=== PATIENT | female | born 1955 | race Caucasian/White ===

== ENCOUNTER 2020-04-06 08:50 | Outpatient (REF) | payer MEDICARE, SELFPAY ==
[2020-04-06 11:35] LABS: Estimated Average Glucose 100 mg/dL; Hemoglobin A1c % 5.1 %
[2020-04-06 11:40] LABS: Glucose Fasting 109 mg/dL (60-99)
== END 2020-04-06 08:51 | disposition home or self-care (01) ==
LOC: HO.WFDLDS 08:50
PROVIDERS: PCP Internal Medicine; Visit Provider Internal Medicine
DX: R73.09 Other abnormal glucose (principal)
CPT/HCPCS: 82947; 83036

== ENCOUNTER 2023-05-13 12:21 | Emergency (ER) | payer MEDICARE, SELFPAY ==
[2023-05-13 12:31] VITALS: BP 140/57; BP 162/89; PULSE 64; PULSE 71; RESP 18; TEMP 36.8; O2SAT 97; O2SAT 99; BMI 42.7
--- NOTE | 2023-05-13 12:39 | PC.NURSE ---
Patient from home reports has had both knees replaced about 8 years ago and did not rehab properly so now she is weak. Denies falls but states has trouble getting up. Denies pain or discomfort, denies sob or chest pain
--- NOTE | 2023-05-13 13:08 | ECG_ITS ---
Test Reason : WEAKNESS Blood Pressure : / mmHG Vent. Rate : 061 BPM Atrial Rate : 061 BPM P-R Int : 160 ms QRS Dur : 078 ms QT Int : 442 ms P-R-T Axes : 035 011 017 degrees QTc Int : 444 ms Normal sinus rhythm Low voltage QRS Nonspecific ST and T wave abnormality Abnormal ECG When compared with ECG of 10-APR-2010 11:20, Nonspecific T wave abnormality now evident in Anterior leads Referred By: Arlene Damian Electronically Signed By:JENNIFER CHANG
--- NOTE | 2023-05-13 13:09 | ED.WEAKNESS ---
HPI - Weakness General Chief complaint: Weakness Stated complaint: INCR WEAKNESS W/DIFF AMB PER EMS Time Seen by Provider: 05/13/23 13:02 Source: patient Mode of arrival: EMS Limitations: no limitations History of Present Illness HPI Narrative: To the emergency room complaining of weakness. Patient states that for the last 2 months, patient has had multiple falls due to bilateral leg weakness. Patient states that she has no significant pain. However, when she goes up the stairs, she frequently falls. Patient states that she has never hit her head or lost consciousness. Patient does have atrial fibrillation but is not on any blood thinners. Patient states that she has bilateral upper thigh soreness from trying to get out of the couch so many times. Patient states that today her got sick, she has not able to care for him because of her weakness. Patient's was brought to the emergency room by hospital and decided to come along to get checked out. At this time, patient has no complaints, other than the soreness of the thighs. Related Data Allergies Allergy/AdvReac Type Severity Reaction Status Date / Time Penicillins Allergy Severe ANAPHYLAXIS Unverified 12/24/19 15:14 Review of Systems Review of Systems: Constitutional : No Weight loss, No Fever, No Chills, No Night Sweats, No Fatigue, No Malaise ENT/Mouth : No Hearing loss, No Ear Pain, No Nasal Congestion, No Sinus Pain, No Hoarseness, No sore throat, No Rhinorrhea, No Swallowing Difficulty Eyes: No Eye Pain, No Swelling, No Redness, No Foreign Body, No Discharge, No Vision Changes Cardiovascular : No Chest Pain, No SOB, No Dyspnea on Exertion, No Orthopnea, No Edema, No Palpitations Respiratory : No Cough, No Sputum, No Wheezing, No Smoke Exposure, No Dyspnea Gastrointestinal : No Nausea, No Vomiting, No Diarrhea, No Constipation, No abdominal Pain, No Hematochezia, No Melena Genitourinary : no irregular bleeding, No Dysuria, No Urinary Frequency, No Hematuria, No Urinary Incontinence, No Urgency, No Flank Pain, No Urinary Flow Changes, No Hesitancy Musculoskeletal : No joint pain, No Myalgias, No Joint Swelling complaining of bilateral leg weakness for months, no pain Skin : No Skin Lesions, No rash Neuro : No Weakness, No Numbness, No Paresthesias, No Loss of Consciousness, No Dizziness, No Headache Psych : No Anxiety/Panic, No Depression, No SI/HI/AH/VH, No Social Issues, Heme/Lymph: No Bruising, No Bleeding,No Lymphadenopathy Endocrine : No Polyuria, No Polydipsia, No Temperature Intolerance FORMERLY [facility], [facility] Past Medical History Medical History (Updated 05/13/23 @ 13:13 by Arlene Damian MD) Atrial fibrillation with RVR Hypertension Social History Social History Smoked in Last 30 Days: No Use of substances other than those prescribed or required for medical reasons: No Advance Directives: No Advance Directives Information Provided: No Physical Exam Vital Signs: Vital Signs: Last Vital Signs Temp 98.3 F 05/13/23 12:31 Pulse 64 05/13/23 12:31 Resp 18 05/13/23 12:31 BP 140/57 H 05/13/23 12:31 Pulse Ox 97 05/13/23 12:31 O2 Del Method Room Air 05/13/23 12:31 BMI result Body Mass Index 42.7 Course Course Course Narrative: -all of patient's labs pending -case management consult pending -physical therapy consult pending -patient is on physician observation, waiting to be seen by case management and physical therapy Medical Decision Making Medical Decision Making MDM Narrative: -my interpretation of labs, hematology and chemistry at baseline, normal magnesium, normal troponin, COVID negative -patient has no other complaints other than the weakness. -urinalysis pending, patient has not given us a urine sample yet. -physical therapy and Case Management consult pending Differential Diagnosis Differential Diagnoses: The differential diagnosis associated with the presentation includes (Generalized weakness, UTI, depression) Admission/Observation Consideration of admission/observation: Escalation of care including admission/observation considered (Patient under physician observation, waiting to be seen by Physical therapy) Lab Data 05/13/23 13:35 05/13/23 13:35 Labs: Lab Results 05/13/23 Range/Units 13:35 WBC 5.3 (4.8-10.8) X10*3/uL RBC 4.10 L (4.20-5.50) X10*6/uL Hgb 11.8 L (12.0-16.0) g/dl Hct 35.2 L (37.0-47.0) % MCV 85.9 (80.0-98.0) fL MCH 28.8 (27.0-33.0) pg MCHC 33.5 (31.0-35.0) g/dl RDW 16.8 H (11.0-16.0) % Plt Count 254 (160-400) X10*3/uL MPV 8.8 L (9.4-12.3) fL Immature Gran % (Auto) 0.6 H (0.0-0.4) % Neut % (Auto) 72.5 (45-73) % Lymph % (Auto) 11.2 L (20-40) % Darke % (Auto) 9.5 (2-11) % Eos % (Auto) 5.1 H (0-4) % Baso % (Auto) 1.1 (0-2) % Lymph # (Auto) 0.6 L (1.2-4.9) X10*3/uL [place] # (Auto) 0.5 (0.1-1.2) X10*3/uL Eos # (Auto) 0.3 (0.0-0.4) X10*3/uL Baso # (Auto) 0.1 (0.0-0.2) X10*3/uL Abs Immat Gran (auto) 0.03 (0.00-0.03) X10*3/uL Absolute Neuts (auto) 3.8 (2.0-8.3) x10*3/uL Absolute Nucleated RBC 0.000 (0.0-0.012) X10*3/uL Nucleated RBC % (auto) 0.0 (0.0-0.2) /100WBC PT 12.3 (11.1-13.3) SEC INR 1.0 (0.9-1.1) Sodium 136 (135-145) mmol/L Potassium 4.2 (3.3-5.1) mmol/L Chloride 100 (96-108) mmol/L Carbon Dioxide 27 (22-29) mmol/L Anion Gap 13 (12-20) BUN 9 (9-16) mg/dL Creatinine 0.82 (0.5-1.4) mg/dL Estim Creat Clear Calc 88.3 Estimated GFR > 60 Random Glucose 119 H (60-115) mg/dL Calcium 9.1 (8.4-10.2) mg/dL Magnesium 2.1 (1.6-2.6) mg/dL Total Bilirubin 0.6 (0.0-1.0) mg/dL Direct Bilirubin 0.2 (0.0-0.5) mg/dL AST 26 (5-31) U/L ALT 14 (0-31) U/L Alkaline Phosphatase 89 (39-117) U/L Troponin I High Sens 3.1 (<3.5-17.0) ng/L Total Protein 6.1 L (6.5-8.0) g/dL Albumin 3.5 (3.5-5.0) g/dL COVID-19 (BABITA) Negative (Negative) COVID-19 Clin Com See Note Discharge Plan Discharge Clinical Impression: Bilateral leg weakness Patient Disposition: Still a Patient
[2023-05-13 13:45] LABS: MANUAL DIFF FLAG NO
[2023-05-13 13:46] LABS: Basophils Absolute Auto 0.1 X10*3/uL (0.0-0.2); Basophils Percent Auto 1.1 % (0-2); Eosinophils Absolute Auto 0.3 X10*3/uL (0.0-0.4); Eosinophils Percent Auto 5.1 % (0-4); Hematocrit 35.2 % (37.0-47.0); Hemoglobin 11.8 g/dl (12.0-16.0); Imm Gran Abs Auto 0.03 X10*3/uL (0.00-0.03); Imm Gran Pct Auto 0.6 % (0.0-0.4); Lymphocytes Absolute Auto 0.6 X10*3/uL (1.2-4.9); Lymphocytes Percent Auto 11.2 % (20-40); Mean Corpuscular HGB Conc 33.5 g/dl (31.0-35.0); Mean Corpuscular Hemoglobin 28.8 pg (27.0-33.0); Mean Corpuscular Volume 85.9 fL (80.0-98.0); Mean Platelet Volume 8.8 fL (9.4-12.3); Monocytes Absolute Auto 0.5 X10*3/uL (0.1-1.2); Monocytes Percent Auto 9.5 % (2-11); Neutrophils Absolute Auto 3.8 x10*3/uL (2.0-8.3); Neutrophils Percent Auto 72.5 % (45-73); Platelet Count 254 X10*3/uL (160-400); Red Cell Distribution Width 16.8 % (11.0-16.0); White Blood Count 5.3 X10*3/uL (4.8-10.8)
[2023-05-13 13:54] LABS: Prothrombin Time 12.3 SEC (11.1-13.3)
[2023-05-13 13:57] LABS: COVID-19 Test Negative (Negative); IDNOW Serial# 152EDE1D
[2023-05-13 14:01] LABS: Alanine Aminotransferase 14 U/L (0-31); Albumin Level 3.5 g/dL (3.5-5.0); Alkaline Phosphatase 89 U/L (39-117); Anion Gap 13 (12-20); Aspartate Amino Transferase 26 U/L (5-31); Bilirubin Direct 0.2 mg/dL (0.0-0.5); Bilirubin Total 0.6 mg/dL (0.0-1.0); Blood Urea Nitrogen 9 mg/dL (9-16); Calcium 9.1 mg/dL (8.4-10.2); Carbon Dioxide 27 mmol/L (22-29); Chloride 100 mmol/L (96-108); Creatinine Clr Calc Pharmacy 88.3; Estimated Glomerular Filt Rate > 60; Glucose Random 119 mg/dL (60-115); Magnesium 2.1 mg/dL (1.6-2.6); Potassium 4.2 mmol/L (3.3-5.1); Sodium 136 mmol/L (135-145); Total Protein 6.1 g/dL (6.5-8.0)
[2023-05-13 14:10] LABS: Troponin-I High Sensitivity 3.1 ng/L (<3.5-17.0)
[2023-05-13 18:06] VITALS: RESP 20; O2SAT 97
[2023-05-13 19:12] VITALS: BP 124/54; PULSE 73; RESP 17; TEMP 36.8; O2SAT 96
--- NOTE | 2023-05-13 19:19 | MHC.CM.ED ---
CM met with patient and cousin. Pt is A&Ox3. Pt is a retired pediatric nurse. Pt is quite concerned about her , as he is a patient in our ED also. Pt lives with her . Has grown children. Occasionally uses a walker, more so the last week. Is independent at home. Has no services. PT is pending. Reviewed plan of care options including Acute rehab, STR, home PT, and the 3 midnight rule. Pt does not have funds to private pay for STR. Does not meet criteria for admission. Pt would be a good candidate for Acute rehab. Referrals placed with 3 local acute rehabs. Pt lives in [place]. [facility]. Will place referral in the am, as office is closed. HCP reviewed, completed and signed per protocol. HCP #1 Luther Giang, ([phone]) and #2 Hollis Rahat, son ([phone]) CM will follow for discharge planning.
--- NOTE | 2023-05-13 19:22 | MHC.EDTECH ---
This Tech assumed care of this PT. Pt placed on alarm security or surveillance monitor and red fall precaution wristband and socks put on pt
--- NOTE | 2023-05-13 20:37 | PHA.MEDREC ---
Pharmacy Consult ? Medication Reconciliation Pharmacy has completed the medication reconciliation. Patient reported medications. Elaine Galarza, RheaD
[2023-05-14 03:48] VITALS: BP 164/58; PULSE 92; RESP 20; TEMP 36.7; O2SAT 98
[2023-05-14 08:26] VITALS: BP 148/72; PULSE 87; RESP 16; TEMP 36.3; O2SAT 97
[2023-05-14 08:37] VITALS: BP 148/72; PULSE 87; O2SAT 97
[2023-05-14] MEDS: hydroCHLOROthiazide 12.5 MG TABLET PO (09:52)
[2023-05-14] MEDS: buPROPion HCl XL 300 MG TAB.ER.24H PO (09:52)
[2023-05-14] MEDS: lisinopriL 10 MG TABLET PO (09:52)
[2023-05-14] MEDS: Metoprolol Tartrate 50 MG TABLET PO ×2 (10:16→21:41)
[2023-05-14] MEDS: PARoxetine HCL 40 MG TABLET PO (10:16)
[2023-05-14 14:00] VITALS: BP 158/56; PULSE 65; RESP 14; TEMP 36.2; O2SAT 96
[2023-05-14 15:23] LABS: Appearance Urine Clear; Color Urine Yellow; Glucose Urine UA Negative (Negative); Leukocyte Esterase Urine Trace (Negative); Nitrite Urine Negative (Negative); PH 8.5 (5.0-9.0); UMIC TRIGGER UACC YES; Urine Blood Negative (Negative); Urine Ketones Trace mg/dL (Negative); Urine Protein Negative (Neg-Trace)
[2023-05-14 15:25] LABS: Bacteria Urine None Seen (None Seen); Hyaline Casts Urine 0-2 /LPF (0-2); RBC Urine 0-2 /HPF (0-2); Squamous Epithelial Cell Urine 0-2 /HPF (0-2); WBC Urine 0-5 /HPF (0-5)
--- NOTE | 2023-05-14 15:35 | MHC.EDTECH ---
pt used the br at 3:10pm and went back to bed
[2023-05-14 15:37] LABS: Amphetamine Screen Urine Not Detected (Not Detect); Barbiturates, Urine Not Detected (Not Detect); Benzodiazepines Screen Urine Not Detected (Not Detect); Cannabinoid Screen Urine Not Detected (Not Detect); Cocaine Screen Urine Not Detected (Not Detect); Fentanyl, urine Not Detected (Not Detect); Opiate Screen Urine Not Detected (Not Detect); Phencyclidine Screen Urine Not Detected (Not Detect)
--- NOTE | 2023-05-14 15:59 | MHC.CM.ED ---
Patient remains in ER overflow. Physical therapy eval completed. Short term rehab is recomemnded. No acute rehab beds were offered. Met with patient in regards to d/c planning. Patient will not be able to privately pay for short term rehab. Patient is concerned about going home alone because her is admitted to [facility]. Patient has children that can assist her and check on her. Patient agreeable to [facility] referral. Referral made via [facility]. Patient's son will not be able to transport patient home until tomorrow 05/15. Continue to monitor for d/c needs.
--- NOTE | 2023-05-14 17:17 | PC.NURSE ---
Pt seen by [employer]. Plan is to go home tomorrow, pt aware of plan. Pt ambulates around the unit using a walker.
--- NOTE | 2023-05-14 19:04 | MHC.EDTECH ---
pt walked and used the bathroom.
[2023-05-14 21:13] VITALS: BP 116/55; PULSE 67; RESP 17; TEMP 36.2; O2SAT 98
--- NOTE | 2023-05-15 01:59 | PC.NURSE ---
Took report from off-going RN at 2300 hours. Pt is a 67 y/o female who is here for general weakness in lower extremities and frequent falls. Came in from home. 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 Pt is A & O X 4, pleasant and cooperative with staff. No acute distress noted and skin is W/P/D. Pt verbalizes needs appropriately. Plan is to discharge home with family, son's are traveling from [place] to help at home while remains inpatient. Will continue to monitor.
--- NOTE | 2023-05-15 03:20 | PC.NURSE ---
Pt is sleeping and appears comfortable. No acute distress noted. Pt is arousable with verbal stimuli. Ambulates independently as desired, walks with a steady gait. Verbalizes needs appropriately. Changes position in bed as desired. Pt is pending discharge home in the morning. will continue to monitor.
--- NOTE | 2023-05-15 05:10 | PC.NURSE ---
Pt is sleeping in left lateral position, appears comfortable. No acute distress observed. RR is regular rate and pattern. Changes positions as desired. Will continue to monitor.
[2023-05-15 06:00] VITALS: BP 124/72; PULSE 80; RESP 18; TEMP 36.3; O2SAT 96
[2023-05-15] MEDS: PARoxetine HCL 40 MG TABLET PO (07:59)
[2023-05-15] MEDS: buPROPion HCl XL 300 MG TAB.ER.24H PO (07:59)
[2023-05-15] MEDS: Metoprolol Tartrate 50 MG TABLET PO (07:59)
[2023-05-15] MEDS: lisinopriL 10 MG TABLET PO (07:59)
[2023-05-15] MEDS: hydroCHLOROthiazide 12.5 MG TABLET PO (07:59)
== END 2023-05-15 11:39 | disposition home or self-care (01) ==
PROVIDERS: Emergency Provider Emergency Medicine; PCP Internal Medicine
DX: R53.1 Weakness (principal); R26.2 Difficulty in walking, not elsewhere classified; Z79.899 Other long term (current) drug therapy; Z11.52 Encounter for screening for COVID-19
CPT/HCPCS: 80048; 80076; 80307; 81001; 83735; 84484; 85025; 85610; 87635; 93005; 97162; 99285

== ENCOUNTER → 2023-05-13 13:08 | Outpatient (BNV) | payer MEDICARE, SELFPAY | PROVIDERS: Emergency Provider Emergency Medicine; PCP Internal Medicine; Visit Provider Internal Medicine | DX: R94.31 Abnormal electrocardiogram [ECG] [EKG] (principal) | CPT/HCPCS: 93010 ==

== ENCOUNTER 2024-05-05 16:35 | Emergency (ER) | payer MEDICARE, SELFPAY ==
--- NOTE | ~2024-05-05 | XR_ITS ---
CLINICAL HISTORY: s p fall 3 view, pelvis and right hip Comparison: None Findings: The bones are intact. Severe right and mild left hip joint space narrowing and moderate periarticular osteophyte formation. The soft tissues are unremarkable. IMPRESSION: Sjexl-nmbqcoz-yxko-left hip osteoarthritis. This document has been electronically signed by: Germain Oro MD on 05/05/2024 17:57:34
[2024-05-05 16:51] VITALS: BP 140/80; BP 144/58; PULSE 62; PULSE 64; RESP 20; TEMP 37.5; O2SAT 98; BMI 39.2
--- NOTE | 2024-05-05 16:51 | ED.GENADULT ---
HPI - General Adult General Chief complaint: Fall Stated complaint: weakness, falling more frequently Time Seen by Provider: 05/05/24 16:49 Source: patient Mode of arrival: EMS Limitations: no limitations History of Present Illness ED Provider: HPI narrative: Patient with history of atrial fibrillation on Eliquis, hypotension, obesity with chronic lower extremity weakness walks with walker been feeling increasingly weak for last 2 months with frequent falls she fell 2 times this week today earlier she was walking with walker and feel that her feeds stuck to the ground and she fell on the couch without hitting her head this happened frequently that while walking she not able to lift her feet because of weakness patient denied any headache no nausea no vomiting no loss of consciousness no chest pain palpitation patient also does have bilateral hip pain with chronic hip arthritis Related Data Home Medications ?Medication ?Instructions ?Recorded ?Confirmed bupropion HCl 150 mg tablet,12 hr 150 mg PO BID 05/13/23 05/05/24 sustained-release lisinopril 10 1 tab PO DAILY 05/13/23 05/05/24 mg-hydrochlorothiazide 12.5 mg tablet metoprolol tartrate 50 mg tablet 50 mg PO BID 05/13/23 05/05/24 paroxetine HCl 40 mg tablet 40 mg PO QAM 05/13/23 05/05/24 apixaban 5 mg tablet (Eliquis) 5 mg PO BID 05/05/24 05/05/24 Allergies Allergy/AdvReac Type Severity Reaction Status Date / Time Penicillins Allergy Severe ANAPHYLAXIS Verified 05/05/24 16:54 Review of Systems Review of Systems: Yes all other systems are reviewed and are negative PMFSH Past Medical History Medical History Atrial fibrillation with RVR Hypertension Social History Social History Smoked in Last 30 Days: No Use of substances other than those prescribed or required for medical reasons: No Advance Directives: Yes Advance Directives on File: Yes Advance Directives Date on File: 05/13/23 Physical Exam ED Vital Signs: Vital Signs - 24 hr 05/05/24 16:51 05/05/24 18:28 05/05/24 20:00 Temperature 99.5 F 98.6 F Pulse Rate 62 64 69 Respiratory Rate 20 18 18 Blood Pressure 144/58 H 133/49 L 125/59 L Pulse Oximetry 98 98 Oxygen Delivery Method Room Air Room Air 05/05/24 22:00 Temperature 97.1 F Pulse Rate 61 Respiratory Rate 16 Blood Pressure 123/58 L Pulse Oximetry 96 Oxygen Delivery Method Room Air BMI result Body Mass Index 39.2 Appearance: Alert. Oriented X3. No acute distress. Eyes: PERRLA, No Nystagmus ENT: Pharynx normal. Oral Mucosa moist Neck: Normal inspection. Neck supple. No midline tenderness CVS: Normal heart rate and rhythm. Pulses normal. Respiratory: No respiratory distress. Equal air entry bilateral, no wheezing/rales/rhonchi Abdomen: Soft and nontender. Bowel sounds are present, no mass palpable, no CVA tenderness Skin: Skin warm and dry. Normal skin color. Normal skin turgor. Extremities: No lower extremity edema. No calf tenderness Neuro: Oriented X 3. No motor deficit. No sensory deficit.No cerebellar signs , cranial nerves II-XII intact Medications Administered Generic Name Dose Route Start Last Admin Trade Name Freq PRN Reason Stop Dose Admin Apixaban 5 mg 05/05/24 21:00 05/05/24 20:03 Apixaban 5 Mg Tablet PO 5 mg BID NYA Administration Metoprolol Tartrate 50 mg 05/05/24 21:00 05/05/24 20:02 Metoprolol Tartrate 50 Mg Tablet PO 50 mg BID NYA Administration Protocol Medical Decision Making Medical Decision Making [facility] Narrative: Patient obese with difficulty in walking for last several months asking for rehab inpatient placement as she is unable to manage no acute pathology at this time labs are stable will get case management involved PT to evaluate Differential Diagnosis Differential Diagnoses: The differential diagnosis associated with the presentation includes Deconditioning/obesity/weakness Lab Data [facility] Lab Attestation statement: I reviewed the patient's lab results. 05/05/24 18:09 05/05/24 18:09 Labs: Lab Results 05/05/24 05/05/24 Range/Units 18:09 19:56 WBC 7.3 (4.8-10.8) X10*3/uL RBC 4.14 L (4.20-5.50) X10*6/uL Hgb 12.3 (12.0-16.0) g/dl Hct 36.6 L (37.0-47.0) % MCV 88.4 (80.0-98.0) fL MCH 29.7 (27.0-33.0) pg MCHC 33.6 (31.0-35.0) g/dl RDW 15.1 (11.0-16.0) % Plt Count 257 (160-400) X10*3/uL MPV 9.1 L (9.4-12.3) fL Immature Gran % (Auto) 1.4 H (0.0-0.4) % Neut % (Auto) 75.4 H (45-73) % Lymph % (Auto) 9.4 L (20-40) % [place] % (Auto) 10.1 (2-11) % Eos % (Auto) 2.9 (0-4) % Baso % (Auto) 0.8 (0-2) % Lymph # (Auto) 0.7 L (1.2-4.9) X10*3/uL [place] # (Auto) 0.7 (0.1-1.2) X10*3/uL Eos # (Auto) 0.2 (0.0-0.4) X10*3/uL Baso # (Auto) 0.1 (0.0-0.2) X10*3/uL Abs Immat Gran (auto) 0.10 H (0.00-0.03) X10*3/uL Absolute Neuts (auto) 5.5 (2.0-8.3) x10*3/uL Absolute Nucleated RBC 0.000 (0.0-0.012) X10*3/uL Nucleated RBC % (auto) 0.0 (0.0-0.2) /100WBC Sodium 133 L (135-145) mmol/L Potassium 3.8 (3.3-5.1) mmol/L Chloride 98 (96-108) mmol/L Carbon Dioxide 27 (22-29) mmol/L Anion Gap 12 (12-20) BUN 8 L (9-16) mg/dL Creatinine 0.73 (0.5-1.4) mg/dL Estim Creat Clear Calc 93.2 Estimated GFR > 60 Random Glucose 102 (60-115) mg/dL Calcium 8.8 (8.4-10.2) mg/dL Magnesium 1.9 (1.6-2.6) mg/dL Total Bilirubin 0.6 (0.0-1.0) mg/dL AST 25 (5-31) U/L ALT 10 (0-31) U/L Alkaline Phosphatase 84 (39-117) U/L Total Protein 6.1 L (6.5-8.0) g/dL Albumin 3.3 L (3.5-5.0) g/dL Urine Color Yellow Urine Appearance Clear Urine pH 7.5 (5.0-9.0) Ur Specific [place] 1.015 (1.005-1.025) Urine Protein Negative (Neg-Trace) mg/dL Urine Glucose (UA) Negative (Negative) mg/dL Urine Ketones Negative (Negative) mg/dL Urine Blood Negative (Negative) Urine Nitrite Negative (Negative) Ur Leukocyte Esterase Negative (Negative) COVID-19 (BABITA) Negative (Negative) COVID-19 Clin Com See Note Independent Interpretation I performed an independent interpretation of an: EKG and Plain X-Ray Interpretation: Normal sinus rhythm with PACs normal axis normal intervals no acute STT wave changes no acute ischemia Radiology Impression Discussion of test interpretation with radiology: I have reviewed the radiologist's reading. Radiologist Impression: Bilateral hip arthritis Discharge Plan Discharge Clinical Impression: Weakness, Frequent falls Patient Disposition: Still a Patient Prescriptions: No Action Eliquis 5 mg tablet 5 mg PO BID bupropion HCl 150 mg tablet sustained-release 12 hr 150 mg PO BID metoprolol tartrate 50 mg tablet 50 mg PO BID lisinopril-hydrochlorothiazide 10-12.5 mg tablet 1 tab PO DAILY paroxetine HCl 40 mg tablet 40 mg PO QA Print Language: Arabic
--- NOTE | 2024-05-05 17:21 | ECG_ITS ---
Test Reason : weakness Blood Pressure : */* mmHG Vent. Rate : 63 BPM Atrial Rate : 63 BPM P-R Int : 148 ms QRS Dur : 90 ms QT Int : 450 ms P-R-T Axes : 12 -3 12 degrees QTcB Int : 460 ms Sinus rhythm with marked sinus arrhythmia Nonspecific T wave abnormality Abnormal ECG When compared with ECG of 13-May-2023 13:50, No significant change was found Referred By: Jaylen Young Electronically Signed By: JENNIFER CHANG
--- OUTSIDE RECORDS SUMMARY | 2024-05-05 17:52 | XMS_ITS ---
Author Organization Tristin Song MD Address [address] [place], [place] [phone] Care Team Providers Care Cartographic Drafter Name Role Phone Tristin Song Primary Care Provider Allergies Allergen (clinical drug ingredient) Drug/Non Drug Allergy documented on EMR Reaction Allergy Type Onset Date Status penicillin G Penicillin G Potassium hives ,throat swelling Drug Allergy Active REASON FOR VISIT 3 month could not make it to the office , will do Telelhealth ? needs Physical and Labs, stopped Eliquis 1 week ago for 2 days but then went back on but only once a day due to severe Epistaxis, [id number] Medications Medication SIG (Take, Route, Frequency, Duration) Notes Start Date End Date Status PARoxetine HCl 40 MG TAKE 1 TABLET BY MO RUST EVERY MORNING for 30 Active buPROPion HCl ER (SR) 150 MG TAKE 1 TABLET BY MOUTH TWICE DAILY for 90 Active Eliquis 5 MG as directed Orally o nce a day 12/02/2023 Active Metoprolol Tartrate 50 MG TAKE 1 TABLET BY MOUTH TWICE DAILY for 90 Active Clindamycin HCl 300 MG TAKE 2 CAPSULES B Y MOUTH 1/2 HOUR PRIOR TO DENTAL APPT. Oral i/2 hour before dental for 1 days 04/18/2015 Active Concerta 36 MG 2 tablet in the morn ing Orally Once a day for 30 days 10/02/2022 Not-Taking Iron 325 (65 Fe) MG 1 tablet Orally Once a day for 30 day(s) 01/23/2018 Not-Taking Lisinopril-hydroCHLOROthi azide 10-12.5 MG TAKE 1 TABLET BY MOUTH EVERY DAY Orally Once a day for 90 days Active Problems Problem Type SNOMED Code ICD Code Onset Dates Problem Status W/U Status Risk Notes Problem [id number] Gait disorder (R26.9) Active confirmed Vital Signs Height 67 in 03/17/2024 Weight 250 lbs 03/17/2024 BMI 39.15 kg/m2 03/17/2024 weight at home is 250 BP donta l be taken before her visit Encounters Encounter Location Date Provider Diagnosis Tristin Song MD [address] [place] [address] [address] [place], [place] [phone] 03/17/2024 Tristin Song Paroxysmal atrial fibrillation I48.0 ; Bleeding nose R04.0 ; Chronic alcohol abuse F10.10 and Gait disorder R26.9 Assessments Encounter Date Diagnosis (ICD Code) Assessment Notes Treatment Notes Treatment Clinical Notes Section Notes 03/17/2024 Paroxysmal atrial fibrillation (ICD-10 - I48.0) will leave on present one eliquis per day for another week and then start on 2/day again thinking that the nose bleeds were related to the covid 03/17/2024 Bleeding nose (ICD-10 - R04.0) will monitor 03/17/2024 Chronic alcohol abuse (ICD-10 - F10.10) is going to try to cut back on drinking. 03/17/2024 Gait disorder (ICD-10 - R26.9) referral to physical therapy at [facility]/ orders for PT mailed to patient Plan Of Treatment Treatment Notes Assessment Notes Paroxysmal atrial fibrillation will leav e on present one eliquis per day for another week and then start on 2/day again thinking that the nose bleeds were related to the covid Bleeding nose will monitor Chronic alcohol abuse is going to try to cut back on drinking. Gait disorder referral to physical therapy at [facility]/ orders for PT mailed to patient Next Appt Details Follow Up: 2 Months, Reason: Provider Name:Tristin Cruz ier, 05/18/2024 03:00:00 PM, [address] [facility], [address], [place], [place], [phone], Progress Notes * Candelaria GIANG ADOB:1955 (68 yo F)Acc No.[id number]:03/17/2024 Patient:?Candelaria Giang A Provider:?Tristin Song MD :1955???Age:68 Y???Sex:Female D ate:03/17/2024 Address:[address] [place] [address] , [id number] Subjective: * Chief Complaints: * ???3 month could not make it to the office , will do Telelhealth ? needs Physical and Labsstopped Eliquis 1 week ago for 2 days but then went back on but only once a day due to severe EpistaxisVideo [phone] * HPI: ???Symptom(s):?Telehealth?Location of provider rendering services:?[address], [address],?Location of patient:?at address listed in demographics for today's visit,?Patient identification confirmed using:?Name, , SSN, Insurance information,?Telehealth method:?Video conference where patient is visible to the provider of care,?Consent:?Patient verbally consented to treatment, Patient verbally consented to billing insurance company, Patient informed of any privacy concerns related to method of visit,?Total time spend talking with patient (minutes)?25.? patientis a 68 yo female video telehealth visit, for 3 month follow up, had severe nose bleed with a sneeze and hard time stopping it/ stopped it for a couple days. was at the tale end of covid and had a lot of chest congestion and head congestion. * ROS:?General/Constitutional:?Denies?Chills.?Denies?Fatigue.?Denies?Fever.?Denies?Headache.?ENT:?Patient denies?decreased sense of smell , any loss of taste , sore throat.?Denies?Sore throat.?Respiratory:?Denies?Cough.?Denies?Shortness of breath at rest.?Denies?Shortness of breath with exertion.?Cardiovascular:?Denies?Chest pain at rest.?Denies?Chest pain with exertion.?Denies?Dizziness.?Denies?Fluid accumulation in the legs.?Denies?Palpitations.?Denies?Shortness of breath.?Gastrointestinal:?Denies?Diarrhea.?Denies?Nausea.?Musculoskeletal:?Patient denies?muscle aches.?Peripheral Vascular:?Patient denies?red and blue toes.? * Medical History:? * Surgical History:? * Hospitalization/Major Diagno stic Procedure:? * Medications:?TakingLisinopri l-hydroCHLOROthiazide 10-12.5 MG Tablet TAKE 1 TABLET BY MOUTH EVERY DAY Orally Once a dayPARoxetine HCl 40 MG Tablet TAKE 1 TABLET BY MOUTH EVERY MORNING buPROPion HCl ER (SR) 150 MG Tablet Extended Release 12 Hour TAKE 1 TABLET BY MOUTH TWICE DAILY Eliquis 5 MG Tablet as directed Orally once a dayMetoprolol Tartrate 50 MG Tablet TAKE 1 TABLET BY MOUTH TWICE DAILY Clindamycin HCl 300 MG Capsule TAKE 2 CAPSULES BY MOUTH 1/2 HOUR PRIOR TO DENTAL APPT. Oral i/2 hour before dentalTaking Lisinopril-hydroCHLOROthiazide 10-12.5 MG Tablet TAKE 1 TABLET BY MOUTH EVERY DAY Orally Once a dayTaking PARoxetine HCl 40 MG Tablet TAKE 1 TABLET BY MOUTH EVERY MORNING Taking buPROPion HCl ER (SR) 150 MG Tablet Extended Release 12 Hour TAKE 1 TABLET BY MOUTH TWICE DAILY Taking Eliquis 5 MG Tablet as directed Orally once a dayTaking Metoprolol Tartrate 50 MG Tablet TAKE 1 TABLET BY MOUTH TWICE DAILY Taking Clindamycin HCl 300 MG Capsule TAKE 2 CAPSULES BY MOUTH 1/2 HOUR PRIOR TO DENTAL APPT. Oral i/2 hour before dentalNot-Taking/PRNConcerta 36 MG Tablet Extended Release 2 tablet in the morning Orally Once a dayIron 325 (65 Fe) MG Tablet 1 tablet Orally Once a dayMedication List reviewed and reconciled with the patientNot-Taking/PRN Concerta 36 MG Tablet Extended Release 2 tablet in the morning Orally Once a dayNot-Taking/PRN Iron 325 (65 Fe) MG Tablet 1 tablet Orally Once a dayMedication List reviewed and reconciled with the patient * Allergies:?Penicillin G Pota ssium: hives ,throat swellingyes[Allergies Verified] Objective: * Vitals:?Ht: 67, Wt:250, BMI: 39.15 weight at home is 250 BP will be taken before her visit. * Examination: ???General Examination: ?GENERAL APPEARANCE:?pleasant, well nourished, well developed, in no acute distress.? Assessment: * Assessment: 1.?Paroxysmal atrial fibrill ation - I48.0 (Primary)?2.?Bleeding nose - R04.0?3.?Chronic alcohol abuse - F10.10?4.?Gait disorder - R26.9? Plan: * Treatment: 2.?Bleeding nose? Notes: will monitor?? 3.?Chronic alcohol abuse? Notes: is going to try to cut back on drinking. ?? 4.?Gait disorder? Notes: referral to physical therapy at [facility]/ orders for PT mailed to patient?? * Procedure Codes:? * Follow Up:?2 Months * * Sign off status: Completed true * Provider:?Tristin Song MD Date:?1 05/18/2023 Generated for Mendez diamond/Morris/eTjeffrey on:?05/05/2024 05:52 PM EST History and Physical Notes * HPI (History of Present Illness) Category Sub-Category Detail Notes Category Not es Symptom(s) Telehealth Location of [facility] ider rendering services:: [address], [address] patientis a 68 yo female video telehealth visit, for 3 month follow up, had severe nose bleed with a sneeze and hard time stopping it/ stopped it for a couple days. was at the tale end of covid and had a lot of chest congestion and head congestion Location of patient:: at address listed in demographics for today's visit Patient identification confirmed using:: Name, , SSN, Insurance information Telehealth method:: Video co nference where patient is visible to the provider of care Consent:: Patient verbally c onsented to treatment, Patient verbally consented to billing insurance company, Patient informed of any privacy concerns related to method of visit Total time spend talking with patient (m inutes): 25 Examination Category Sub-Category Detail Notes Category Not es General Examination GENERAL APPEARANCE: pleasant , well nourished, well developed, in no acute distress
--- OUTSIDE RECORDS SUMMARY | 2024-05-05 17:52 | XMS_ITS ---
Author Organization Tristin Song MD Address [address] [place] [phone] Care Team Providers Care Senior Accountant Name Role Phone Tristin Song Primary Care Provider REASON FOR VISIT RF Medications Medication SIG (Take, Route, Fr equency, Duration) Notes Start Date End Date Status Clindamycin HCl 300 MG TAKE 2 CAPSULES B Y MOUTH 1/2 HOUR PRIOR TO DENTAL APPT. Oral i/2 hour before dental for 1 days 04/18/2015 Active Encounters Encounter Location Date Provider Diagnosis Tristin Song MD [address] [facility] [address] [place], [place] [phone] 02/25/2024 Tristin Song Plan Of Treatment Medication Medication Name Sig Start Date Stop Date Notes Clindamycin HCl 300 MG TAKE 2 CAPSULES B Y MOUTH 1/2 HOUR PRIOR TO DENTAL APPT. Oral i/2 hour before dental for 1 days 04/18/2015 Next Appt Details Provider Name:Tristin lazaro, 05/18/2024 03:00:00 PM, [address] [place] [address], [address], [place], [place], [phone], Progress Notes * Candelaria GIANGOB:1955 (68 yo F)Acc No.[id number]:02/25/2024 Patient:?Candelaria Giang :1955???Age:68 Y???Sex:Female Address:[address] [place] [address], [place] [address] * Refills? Refill Clindamycin HCl Capsule, 300 MG, Oral, 10, TAKE 2 CAPSULES BY MOUTH 1/2 HOUR PRIOR TO DENTAL APPT., i/2 hour before dental, 1 days, Refills=4 * true * Date:? Generated for Mendez diamond/Morris/Alexitting on:?05/05/2024 05:51 PM EST
--- OUTSIDE RECORDS SUMMARY | 2024-05-05 17:52 | XMS_ITS ---
Author Organization Tristin Song MD Address [address] [place] [phone] Care Team Providers Care Director Of Guidance [employer] Name Role Phone Tristin Song Primary Care Provider Allergies Allergen (clinical drug ingredient) Drug/Non Drug Allergy documented on EMR Reaction Allergy Type Onset Date Status penicillin G Penicillin G Potassium hives ,throat swelling Drug Allergy Active REASON FOR VISIT 3 MO F/U Encounters Encounter Location Date Provider Diagnosis Tristin Song MD [address] [place] [phone] 02/28/2024 Tristin Song Plan Of Treatment Next Appt Details Provider Name:Tristin Cruz ier, 05/18/2024 03:00:00 PM, [address], Suite [facility], [place], [place], [phone], Progress Notes * Candelaria GIANG ADOB:1955 (68 yo F)Acc No.[id number]:02/28/2024 Progress Notes Patient:?Candelaria GIANG Provider:?Tristin Song MD :1955???Age:68 Y???Sex:Female D ate:02/28/2024 Address:[address] [place] [address] , [id number] Subjective: * Chief Complaints: * ???1. 3 MO F/U. * ROS:?General/Constitutional:?Denies?Chills.?Denies?Fatigue.?Denies?Fever.?Denies?Headache.?ENT:?Denies?Sore throat.?Respiratory:?Denies?Cough.?Denies?Shortness of breath at rest.?Denies?Shortness of breath with exertion.?Gastrointestinal:?Denies?Diarrhea.?Denies?Nausea.? * Medical History:?colonoscopy 2011 adenomas due in 2016; colonoscopy done 02/[address] Hood - repeat 5 years, H/O GI bleed. * Allergies:?Penicillin G Pota ssium: hives ,throat swelling. Objective: * Vitals:? Assessment: Plan: * Treatment: * * The named appointment provid er may or may not be the originator of this progress note, and it is not deemed complete until electronically signed by the appointment provider. Sign off status: Pending * Provider:?Tristin Song MD Date:?04/29/2023 Generated for Mendez diamond/Morris/Alexitting on:?05/05/2024 05:51 PM EST
--- NOTE | 2024-05-05 18:11 | MHC.CM.ED ---
CM met with patient at the request of Dr. Young. Pt lives with her . Uses a walker. Denies any services. States has been falling. Has hx of bilateral knee replacements. C/O weakness in legs. Pt is requesting rehab. CM spoke with patient about options for rehab, PT assessment, 3 midnight rule for Medicare. Pt is at bedside. Will place acute referrals. If acute rehabs do not offer her a bed, patient will private pay for STR. Pt feels she needs more than home PT. PCP is Dr. Arben Song. HCP taryn file. CM will refer to local Acute rehabs. Awaiting PT evaluation in the morning. CM will follow for discharge planning.
[2024-05-05 18:15] LABS: MANUAL DIFF FLAG NO
[2024-05-05 18:28] VITALS: BP 133/49; PULSE 64; RESP 18; TEMP 37; O2SAT 98
[2024-05-05 18:29] LABS: COVID-19 Test Negative (Negative); IDNOW Serial# 58CA691E
[2024-05-05 18:30] LABS: Alanine Aminotransferase 10 U/L (0-31); Albumin Level 3.3 g/dL (3.5-5.0); Alkaline Phosphatase 84 U/L (39-117); Anion Gap 12 (12-20); Aspartate Amino Transferase 25 U/L (5-31); Bilirubin Total 0.6 mg/dL (0.0-1.0); Blood Urea Nitrogen 8 mg/dL (9-16); Calcium 8.8 mg/dL (8.4-10.2); Carbon Dioxide 27 mmol/L (22-29); Chloride 98 mmol/L (96-108); Creatinine Clr Calc Pharmacy 93.2; Estimated Glomerular Filt Rate > 60; Glucose Random 102 mg/dL (60-115); Magnesium 1.9 mg/dL (1.6-2.6); Potassium 3.8 mmol/L (3.3-5.1); Sodium 133 mmol/L (135-145); Total Protein 6.1 g/dL (6.5-8.0)
[2024-05-05 18:36] LABS: Basophils Absolute Auto 0.1 X10*3/uL (0.0-0.2); Basophils Percent Auto 0.8 % (0-2); Eosinophils Absolute Auto 0.2 X10*3/uL (0.0-0.4); Eosinophils Percent Auto 2.9 % (0-4); Hematocrit 36.6 % (37.0-47.0); Hemoglobin 12.3 g/dl (12.0-16.0); Imm Gran Pct Auto 1.4 % (0.0-0.4); Lymphocytes Absolute Auto 0.7 X10*3/uL (1.2-4.9); Lymphocytes Percent Auto 9.4 % (20-40); Mean Corpuscular HGB Conc 33.6 g/dl (31.0-35.0); Mean Corpuscular Hemoglobin 29.7 pg (27.0-33.0); Mean Corpuscular Volume 88.4 fL (80.0-98.0); Mean Platelet Volume 9.1 fL (9.4-12.3); Monocytes Absolute Auto 0.7 X10*3/uL (0.1-1.2); Monocytes Percent Auto 10.1 % (2-11); Neutrophils Absolute Auto 5.5 x10*3/uL (2.0-8.3); Neutrophils Percent Auto 75.4 % (45-73); Platelet Count 257 X10*3/uL (160-400); Red Blood Count 4.14 X10*6/uL (4.20-5.50); Red Cell Distribution Width 15.1 % (11.0-16.0); White Blood Count 7.3 X10*3/uL (4.8-10.8)
--- NOTE | 2024-05-05 19:28 | PC.NURSE ---
Med rec done, Pt able to verbalize and provide med list.
--- NOTE | 2024-05-05 19:56 | PHA.MEDREC ---
Pharmacy Consult ? Medication Reconciliation Pharmacy has reviewed the medication reconciliation done by nursing staff.
[2024-05-05 20:00] VITALS: BP 125/59; PULSE 69; RESP 18
[2024-05-05] MEDS: Metoprolol Tartrate 50 MG TABLET PO (20:02)
[2024-05-05] MEDS: Apixaban 5 MG TABLET PO (20:03)
[2024-05-05 20:30] LABS: Color Urine Yellow; Glucose Urine UA Negative (Negative); Leukocyte Esterase Urine Negative (Negative); Nitrite Urine Negative (Negative); PH 7.5 (5.0-9.0); Specific Gravity - Urine 1.015 (1.005-1.025); Urine Blood Negative (Negative); Urine Ketones Negative (Negative); Urine Protein Negative (Neg-Trace)
[2024-05-05 20:43] LABS: Appearance Urine Clear
[2024-05-05 22:00] VITALS: BP 123/58; PULSE 61; RESP 16; TEMP 36.2; O2SAT 96
[2024-05-06 05:46] VITALS: BP 144/68; PULSE 63; RESP 16; TEMP 36.2; O2SAT 98
--- NOTE | 2024-05-06 09:52 | MHC.CM.ED ---
Addendum entered by Hallie Hoover 05/06/24 12:22: [facility], [facility] [place], [facility], [facility] [place], [facility], [facility] [place] [facility], [facility] and [facility] are all able to offer a private pay bed. These options were discussed with patient. Patient states her will be on-site this afternoon. She will discuss these options with her and then let CM know who is 1st choice. Addendum entered by Hallie Hoover 05/06/24 10:16: [facility] is not able to offer a bed. SNF referral broadcasted within 15 miles of patient's home to see who have a private pay bed to offer. Original Note: Patient remains in ER overflow. Physical therapy eval completed. Rehab is recommended. [facility] and [facility] are not able to offer a bed. Clinical updates sent to [facility]. Continue to monitor for d/c needs.
[2024-05-06] MEDS: lisinopriL 10 MG, hydroCHLOROthiazide 12.5 MG PO (10:02)
[2024-05-06] MEDS: PARoxetine HCL 40 MG TABLET PO (10:03)
[2024-05-06] MEDS: buPROPion HCl XL 300 MG TAB.ER.24H PO (10:03)
[2024-05-06] MEDS: Apixaban 5 MG TABLET PO ×2 (10:03→21:59)
[2024-05-06] MEDS: Metoprolol Tartrate 50 MG TABLET PO ×2 (10:03→21:59)
[2024-05-06 10:10] VITALS: BP 166/77; PULSE 70
--- NOTE | 2024-05-06 13:55 | MHC.CM.ED ---
Addendum entered by Hallie Hoover 05/06/24 14:53: Will transfer to [facility] via BLS tomorrow 05/07 at 11am. Yadira MENDOZA booked. [facility] with chart. Patient, Vijaya Sloan RN and Luna HAWKINS aware. Original Note: Met with patient and , Luther, in regards to discharge planning. Patient accepts bed at [facility]. Facility made aware and will reach out to to arrange financials. Continue to monitor for d/c needs.
[2024-05-06 14:00] VITALS: BP 130/85; PULSE 67; RESP 18; TEMP 36.2; O2SAT 96
[2024-05-06 20:12] VITALS: BP 134/67; PULSE 56; RESP 16; TEMP 36.6; O2SAT 96
--- NOTE | 2024-05-06 21:26 | MHC.EDTECH ---
This pct assumed care of Patient at 1915,vitals taken ,Patient was incontinent of urine ,care given ,bed Pad change gown and Pure wick change ,Snack offer ,Patient refused .All safety measure in Place .
[2024-05-06] MEDS: Melatonin 3 MG TABLET 9 MG PO (21:59)
[2024-05-07] MEDS: methocarbamoL 750 MG TABLET PO (04:27)
[2024-05-07 05:59] VITALS: BP 146/69; PULSE 77; RESP 16; TEMP 36.8; O2SAT 96
--- NOTE | 2024-05-07 06:07 | PC.NURSE ---
uneventful night. mental status at baseline. speech clear. respirations non labored. to be transferred to [facility] in AM.
[2024-05-07] MEDS: Metoprolol Tartrate 50 MG TABLET PO (08:57)
[2024-05-07] MEDS: lisinopriL 10 MG, hydroCHLOROthiazide 12.5 MG PO (08:57)
[2024-05-07] MEDS: Apixaban 5 MG TABLET PO (08:58)
[2024-05-07] MEDS: buPROPion HCl XL 300 MG TAB.ER.24H PO (08:58)
[2024-05-07] MEDS: PARoxetine HCL 40 MG TABLET PO (08:58)
--- NOTE | 2024-05-07 10:21 | MHC.EDTECH ---
Assisted patient with personal hygiene. Changed patients PureWick and replaced chuk.
[2024-05-07 11:06] VITALS: BP 170/81; PULSE 80; RESP 18; TEMP 36.9; O2SAT 96
== END 2024-05-07 11:07 | disposition skilled nursing facility (03) ==
PROVIDERS: Emergency Provider Internal Medicine; PCP Internal Medicine
DX: R53.1 Weakness (principal); M16.0 Bilateral primary osteoarthritis of hip; R29.6 Repeated falls; Z91.81 History of falling; I10 Essential (primary) hypertension; I48.91 Unspecified atrial fibrillation; Z11.52 Encounter for screening for COVID-19; Z79.01 Long term (current) use of anticoagulants
CPT/HCPCS: 73502; 80053; 81003; 83735; 85025; 87635; 93005; 97162; 99285

== ENCOUNTER → 2024-05-05 17:21 | Outpatient (BNV) | payer MEDICARE, SELFPAY | PROVIDERS: Emergency Provider Internal Medicine; PCP Internal Medicine; Visit Provider Internal Medicine | DX: R94.31 Abnormal electrocardiogram [ECG] [EKG] (principal) | CPT/HCPCS: 93010 ==

== ENCOUNTER → 2024-05-05 17:30 | Outpatient (BNV) | payer MEDICARE, SELFPAY | PROVIDERS: Emergency Provider Internal Medicine; PCP Internal Medicine; Visit Provider Radiology Diagnostic Radiology | DX: M16.11 Unilateral primary osteoarthritis, right hip (principal) | CPT/HCPCS: 73502 ==

== ENCOUNTER 2025-01-01 16:11 | Emergency (ER) | payer MEDICARE, SELFPAY ==
--- OUTSIDE RECORDS SUMMARY | 2024-12-11 09:28 | XMS_ITS ---
Author Organization Tristin Song MD Address [address] [place] [phone] Care Team Providers Care Manager Business Operations Name Role Phone Tristin Song Primary Care Provider REASON FOR VISIT refill Medications Medication SIG (Take, Route, Fr equency, Duration) Notes Start Date End Date Status traMADol HCl 50 MG 1 tablet as needed O rally twice a day for 20 days 12/11/2024 Active Encounters Encounter Location Date Provider Diagnosis Tristin Song MD [address] [place] [phone] 12/11/2024 Tristin Song Leg weakness, bilateral R29.898 Assessments Encounter Date Diagnosis (ICD Code) Assessment Notes Treatment Notes Treatment Clinical Notes Section Notes 12/11/2024 Leg weakness, bilateral (ICD-10 - R29.898) Plan Of Treatment Medication Medication Name Sig Start Date Stop Date Notes traMADol HCl 50 MG 1 tablet as needed O rally twice a day for 20 days 12/11/2024 Next Appt Details Provider Name:Tristin lazaro, 02/01/2025 11:15:00 AM, [address], [address] [place] [address], [phone], Progress Notes * Candelaria GIANG ADOB:1955 (69 yo F)Acc No.[id number]:12/11/2024 Patient: Candelaria LÓPEZ :1955 A ge:69 Y S ex:Female Address:[address] [place] [address] , [place] [address] * Refills Refill traMADol HCl Tablet, 50 MG, Orally, 40 Tablet, 1 tablet as needed, twice a day, 20 days, Refills=0 * true * Date: Generated for Mendez diamond/Morris/Alexitting on: 0 01/01/2025 04:59 PM EDT
--- OUTSIDE RECORDS SUMMARY | 2024-12-24 09:49 | XMS_ITS ---
Author Organization Tristin Song MD Address [address] [place] [phone] Care Team Providers Care Switch Box Installer Name Role Phone Tristin Song Primary Care Provider REASON FOR VISIT Letter Encounters Encounter Location Date Provider Diagnosis Tristin Song MD [address] [facility] [address] [place] [phone] 12/24/2024 Tristin Song Plan Of Treatment Next Appt Details Provider Name:Tristin Cruz ier, 02/01/2025 11:15:00 AM, [address] [facility] [address], Suite [facility], [place], [place], [phone], Progress Notes * Candelaria GIANG ADOB:1955 (69 yo F)Acc No.[id number]:12/24/2024 Patient: Candelaria LÓPEZ :1955 A ge:69 Y S ex:Female Address: [place] [address] * true * Date: Generated for Mendez diamond/Morris/eTransmitting on: 0 01/01/2025 05:00 PM EDT
--- OUTSIDE RECORDS SUMMARY | 2024-12-28 12:15 | XMS_ITS ---
Author Organization Tristin Song MD Address [address] [place] [phone] Care Team Providers Care Historic Sites Registrar Name Role Phone Tristin Song Primary Care Provider Medications Medication SIG (Take, Route, Fr equency, Duration) Notes Start Date End Date Status traMADol HCl 50 MG 1 tablet as needed O rally Once a day for 30 days 12/28/2024 Active traMADol HCl 50 MG 1 tablet as needed O rally once a day for 30 days 12/11/2024 Active Encounters Encounter Location Date Provider Diagnosis Tristin Song MD [address] [place] [phone] 12/28/2024 Tristin Song Leg weakness, bilateral R29.898 Assessments Encounter Date Diagnosis (ICD Code) Assessment Notes Treatment Notes Treatment Clinical Notes Section Notes 12/28/2024 Leg weakness, bilateral (ICD-10 - R29.898) Plan Of Treatment Medication Medication Name Sig Start Date Stop Date Notes traMADol HCl 50 MG 1 tablet as needed O rally Once a day for 30 days 12/28/2024 traMADol HCl 50 MG 1 tablet as needed O rally once a day for 30 days 12/11/2024 Next Appt Details Provider Name:Tristin Cruz ier, 02/01/2025 11:15:00 AM, [address] [facility] [facility] [address], [address], [place], [place], [phone], Progress Notes * Candelaria GIANG ADOB:1955 (69 yo F)Acc No.[id number]:12/28/2024 Patient: Akua VALLES Claire Johnny :1955 A ge:69 Y S ex:Female Address:[address] [place] [address], [place] [address] * Refills Refill traMADol HCl Tablet, 50 MG, Orally, 30 Tablet, 1 tablet as needed, once a day, 30 days, Refills=0 Start traMADol HCl Tablet, 50 MG, Orally, 30 Tablet, 1 tablet as needed, Once a day, 30 days * true * Date: Generated for Mendez diamond/Morris/Alexitting on: 0 01/01/2025 05:00 PM EDT
--- OUTSIDE RECORDS SUMMARY | 2024-12-28 12:19 | XMS_ITS ---
Author Organization Tristin Song MD Address [address] [place] [phone] Care Team Providers Care Lead Manufacturing Engineer Name Role Phone Tristin Song Primary Care Provider [phone] Medications Medication SIG (Take, Route, Fr equency, Duration) Notes Start Date End Date Status traMADol HCl 50 MG 1 tablet as needed O rally Once a day for 30 days 12/28/2024 Active Encounters Encounter Location Date Provider Diagnosis Tristin Song MD [address] [facility] [address] [place] [phone] 12/28/2024 Tristin Song Plan Of Treatment Medication Medication Name Sig Start Date Stop Date Notes traMADol HCl 50 MG 1 tablet as needed O rally Once a day for 30 days 12/28/2024 Next Appt Details Provider Name:Tristin lazaro, 02/01/2025 11:15:00 AM, [address] [facility] [address], Suite [facility], [place], [place], [phone], Progress Notes * Candelaria GIANG ADOB:1955 (69 yo F)Acc No.[id number]:12/28/2024 Patient: Candelaria LÓPEZ :1955 A ge:69 Y S ex:Female Address:[address] [place] [address] , [place] [address] * Refills Start traMADol HCl Tablet, 50 MG, Orally, 30 Tablet, 1 tablet as needed, Once a day, 30 days * true * Date: Generated for Mendez diamond/Morris/Alexitting on: 0 01/01/2025 05:01 PM EDT
--- OUTSIDE RECORDS SUMMARY | 2024-12-29 05:22 | XMS_ITS ---
Author Organization Tristin Song MD Address [address] [place] [phone] Care Team Providers Care Sales Representative Gas Service Name Role Phone Tristin Song Primary Care Provider REASON FOR VISIT rf Tramadol Medications Medication SIG (Take, Route, Fr equency, Duration) Notes Start Date End Date Status traMADol HCl 50 MG 1 tablet as needed O rally once a day for 30 days 12/11/2024 Active Encounters Encounter Location Date Provider Diagnosis Tristin Song MD [address] [place] [phone] 12/29/2024 Tristin Song Leg weakness, bilateral R29.898 Assessments Encounter Date Diagnosis (ICD Code) Assessment Notes Treatment Notes Treatment Clinical Notes Section Notes 12/29/2024 Leg weakness, bilateral (ICD-10 - R29.898) Plan Of Treatment Medication Medication Name Sig Start Date Stop Date Notes traMADol HCl 50 MG 1 tablet as needed O rally once a day for 30 days 12/11/2024 Next Appt Details Provider Name:Tristin lazaro, 02/01/2025 11:15:00 AM, [address], [address], [place], [place], [phone], Progress Notes * Candelaria GIANG ADOB:1955 (69 yo F)Acc No.[id number]:12/29/2024 Patient: Candelaria LÓPEZ :1955 A ge:69 Y S ex:Female Address:[address] [place] [address], [place] [address] * Refills Refill traMADol HCl Tablet, 50 MG, Orally, 30 Tablet, 1 tablet as needed, once a day, 30 days, Refills=0 * true * Date: Generated for Mendez diamond/Morris/Alexitting on: 0 01/01/2025 05:00 PM EDT
[2025-01-01 16:30] VITALS: BP 122/56; BP 150/80; PULSE 70; PULSE 71; RESP 17; TEMP 36.3; O2SAT 96; O2SAT 99; BMI 35.2
[2025-01-01 16:33] VITALS: BP 122/56; PULSE 71; RESP 17; TEMP 36.3; O2SAT 96
--- OUTSIDE RECORDS SUMMARY | 2025-01-01 17:00 | XMS_ITS | Encounter Summary ---
Author Organization [facility] Address [address] [place] [address] Care Team Providers Care Conventions Assistant Name Role Phone Ceasar Burton MD Primary Care Provider [phone]- [phone] Encounter Details Date Type Department Care Team (Late st Contact Info) Description 09/28/2024 Lab Requisition [facility] - Main Lab [address] [facility] [place] [address] Leslie Garrison MD [address] [place] [address] Unspecified atrial fibrillation (CMS/HCC V24, CMS/HCC V28) Social History Tobacco Use Types Packs/Day Years Used Date Smoking Tobacco: Former Cigarettes Comments Unknown Sex and Gender Information Value Date Recorded Sex Assigned at Not on file Legal Sex Female 2:35 AM EST Gender Identity Not on file Sexual Orientation Not on file documented as of this encounter Functional Status * Are you deaf or do you have serious difficulty hearing? Answer Date of Assessment Author No 09/26/2024 3:37 PM EDT Medina RN * Are you blind or do you have serious difficulty seeing, even when wearing glasses? Answer Date of Assessment Author No 09/26/2024 3:37 PM EDT Medina RN * Do you have serious difficulty walking or climbing stairs? Answer Date of Assessment Author No 09/26/2024 3:37 PM EDT Medina RN * Do you have serious difficulty dressing or bathing? Answer Date of Assessment Author No 09/26/2024 3:37 PM EDT Medina RN * Because of a physical, mental, or emotional condition, do you have serious difficulty doing errandsalone such as visiting the doctor? Answer Date of Assessment Author No 09/26/2024 3:37 PM EDT Medina RN documented as of this encounter Mental Status * Because of a physical, mental, or emotional condition, do you have serious difficulty concentrating, remembering, or making decisions? (5 years old or older) Answer Entry Date Author No 09/26/2024 3:37 PM EDT Medina RN documented in this encounter Plan of Treatment Not on file documented as of this encounter Procedures Procedure Name Priority Date/Time Associated Diagnosis Comments COMPLETE BLOOD COUNT Routine 09/29/2024 5:24 AM EDT Unspecified atrial fibrillation ([facility] V24, [facility] [place]28) BASIC METABOLIC PANEL Routine 09/29/2024 5:24 AM EDT Unspecified atrial fibrillation ([facility] V24, [facility] V28) documented in this encounter Results * (ABNORMAL) Basic metabolic panel (09/29/2024 5:24 AM EDT) Sodium 139 133 - 145 mmol/L LAB CHEMISTRY METHOD 09/29/2024 9:39 AM [facility] Potassium 3.7 3.5 - 5.5 mmol/L LAB CHEMISTRY METHOD 09/29/2024 9:39 AM [facility] Chloride 105 96 - 110 mmol/L LAB CHEMISTRY METHOD 09/29/2024 9:39 AM [facility] CO2 26 21 - 32 mmol/L LAB CHEMISTRY METHOD 09/29/2024 9:39 AM [facility] Anion Gap 8 3 - 11 LAB CHEMISTRY METHOD 09/29/2024 9:39 AM [facility] Glucose 70 70 - 100 mg/dL LAB CHEMISTRY METHOD 09/29/2024 9:39 AM [facility] BUN 10 5 - 25 mg/dL LAB CHEMISTRY METHOD 09/29/2024 9:39 AM EDT [facility] Creatinine 0.63 0.50 - 1.10 mg/dL LAB CHEMISTRY METHOD 09/29/2024 9:39 AM EDT [facility] eGFR 96 >=60 mL/min/1. 73m2 LAB CHEMISTRY METHOD 09/29/2024 9:39 AM T [facility] Comment:Calculation based on the Chronic Kidney Disease Epidemiology Collaboration (CKD-EPI) equation refit without adjustment for race. BUN/Creatinine Ratio 15.9 LAB CHEMISTRY METHOD 09/29/2024 9:39 AM [facility] Calcium 8.4(L) 8.5 - 10.5 mg/dL LAB CHEMISTRY METHOD 09/29/2024 9:39 AM [facility] Blood Venous blood specimen / Unknown Venipuncture / Unknown 09/29/2024 5:24 AM EDT 09/29/2024 8:11 AM EDT us Leslie Garrison MD LAB BLOOD ORDERABLES Final Resul t [facility] [address] [place] [address], * (ABNORMAL) Complete blood count (09/29/2024 5:24 AM EDT) WBC 4.8 4.8 - 10.8 K/mcL LAB HEMETOLOGY METHOD 09/29/2024 8:21 AM EDT [facility] RBC 4.20 3.80 - 4.80 M/mcL LAB HEMETOLOGY METHOD 09/29/2024 8:21 AM T [facility] Hemoglobin 10.9(L) 11.5 - 16.0 g/dL LAB HEMETOLOGY METHOD 09/29/2024 8:21 AM [facility] Hematocrit 35.7 35.0 - 47.0 % LAB HEMETOLOGY METHOD 09/29/2024 8:21 AM EDT [facility] MCV 84.6 79.0 - 98.0 FL LAB HEMETOLOGY METHOD 09/29/2024 8:21 AM EDT [facility] MCH 25.8(L) 27.0 - 32.0 pcg LAB HEMETOLOGY METHOD 09/29/2024 8:21 AM EDT [facility] MCHC 30.5(L) 32.0 - 37.0 g/dL LAB HEMETOLOGY METHOD 09/29/2024 8:21 AM EDT [facility] RDW 14.1 11.0 - 15.0 % LAB HEMETOLOGY METHOD 09/29/2024 8:21 AM EDT [facility] Platelets 326 130 - 400 K/mcL LAB HEMETOLOGY METHOD 09/29/2024 8:21 AM EDT [facility] MPV 10.4 7.0 - 11.0 FL LAB HEMETOLOGY METHOD 09/29/2024 8:21 AM EDT [facility] NRBC 0.0 <1.0 % LAB HEMETOLOGY METHOD 09/29/2024 8:21 AM EDT [facility] NRBC Absolute 0.00 <0.10 K/mcL LAB HEMETOLOGY METHOD 09/29/2024 8:21 AM [facility] Blood Venous blood specimen / Unknown Venipuncture / Unknown 09/29/2024 5:24 AM EDT 09/29/2024 8:11 AM EDT us Leslie Garrison MD LAB BLOOD ORDERABLES Final Resul t [facility] [address] [place] [address], documented in this encounter Visit Diagnoses Diagnosis Unspecified atrial fibrillation (CMS/HCC V24, CMS/HCC V28) documented in this encounter Care Teams Conventions Assistant Relationship Specialty Start Date End Date Jagadeesan, Ceasar B, MD [address] [place] [address] PCP - General Internal Medicine 05/08/24 documented as of this encounter
--- OUTSIDE RECORDS SUMMARY | 2025-01-01 17:00 | XMS_ITS | Patient Health Record ---
Author Organization Tristin Song MD Address [address] [place], [place] [id number] Care Team Providers Care Patternmaker Metal Bench Name Role Phone Tristin Song Primary Care Provider [phone] Allergies Allergen (clinical drug ingredient) Drug/Non Drug Allergy documented on EMR Reaction Allergy Type Onset Date Status penicillin G Penicillin G Potassium hives ,throat swelling Drug Allergy Active Results Component Value Reference Range Notes UA CC w/rflx Micro + Cult Reviewed date:05/07/2024 12:18:30 PM Interpretation: Performing Lab:[facility], [address] [place] [id number] Notes/Report: [id number] Urine, Clean Catch Color Urine Yellow Appearance Urine Clear PH 7.5 5.0-9.0 Glucose Urine UA Negative Negative mg/dL Urine Blood Negative Negative Specific [employer] - Urine 1.015 1.005-1.025 Urine Protein Negative Neg-Trace mg/dL Urine Ketones Negative Negative mg/dL Nitrite Urine Negative Negative Leukocyte Esterase Urine Negative Negative XR hip RT w PEL1V Reviewed date:05/06/2024 05:29:02 PM Interpretation: Performing Lab: Notes/Report: [address] [address] XRay Report Signed Patient: Candelaria Giang MR#: [id number] : 1955 Acct:[id number] Age/Sex: 68 / F ADM Date: 05/05/24 Loc: HO.ED Attending Dr: Ordering Physician: Jaylen Young MD Date of Service: 05/05/24 Procedure(s): XR hip RT w PEL 1V Accession Number(s): [id number] cc: Tristin Song MD; Jaylen Young MD CLINICAL HISTORY: s p fall 3 view, pelvis and right hip Comparison: None Findings: The bones are intact. Severe right and mild left hip joint space narrowing and moderate periarticular osteophyte formation. The soft tissues are unremarkable. IMPRESSION: Tjwtr-vqvbmot-vfyh-left hip osteoarthritis. This document has been electronically signed by: Germain Oro MD on 05/05/2024 17:57:34 Dictated By: Germain Oro MD Signed By: <Electronically signed by Germain Oro MD in OV> 05/05/241757 DD/ 56 TD/TT: 05/05/241756 Director Customer: [address] [address] XRay Report Signed Patient: Juma Giang MR#: [id number] : 1955 Acct:[id number] Age/Sex: 68 / F ADM Date: 05/05/24 Loc: HO.ED Attending Dr: Ordering Physician: Jaylen Yuong MD Date of Service: 05/05/24 Procedure(s): XR hip RT w PEL 1V Accession Number(s): [id number] cc: Tristin Song MD; Jaylen Young MD CLINICAL HISTORY: s p fall 3 view, pelvis and right hip Comparison: None Findings: The bones are intact. Severe right and mil d left hip joint space narrowing and moderate periarticular osteop hyte formation. The soft tissues are unremarkable. IMPRESSION: Cjuaa-atufhhm-qags-l eft hip osteoarthritis. This document has be en electronically signed by: Germain Oro MD on 05/05/2024 17:57:34 Dictated By: Germain Oro MD Signed By: <Iam [email or web address] signed by Germain Oro MD in OV> 05/05/241757 DD/ 56 TD/TT: 05/05/241756 Director Customer: Reason For Referral Reason right and left knee pain Diagnosis 1 Pain in right knee ( M25.561) Diagnosis 2 Pain in left knee (M 25.562) Referral Organization Tristin Song MD Referring Provider First Name Tristin Referring Provider Last Name Duncan Referring Provider Speciality Internal M edicine Referred Provider PRASAD LONDONO Referred Provider Specialty Orthopedic S urgery General Notes My Rizvi 0 10/26/2024 02:15:22 PM >info faxed appt is with Guillermo Monroe info mailed to patient Referral Priority Routine Referral Appointment Date 02/12/2025 Medications Medication SIG (Take, Route, Frequency, Duration) Notes Start Date End Date Status buPROPion HCl ER (SR) 150 MG TAKE 1 TABLET BY MOUTH TWICE DAILY for 90 Active traMADol HCl 50 MG 1 tablet as needed Orally once a day for 30 days 12/11/2024 Active Metoprolol Tartrate 50 MG TAKE 1 TABLET BY MOUTH TWICE DAILY for 90 Active Ozempic (1 MG/DOSE) 4 MG/3ML 1 mg Subcutaneous weekly for 30 days 11/17/2024 Active Carbidopa-Levodopa 25-100 MG 1 tablet as needed Orally Two times a Week Active Concerta 36 MG 2 tablet in the morn ing Orally Once a day for 30 days 10/02/2022 Not-Taking Iron 325 (65 Fe) MG 1 tablet Orally Once a day for 30 day(s) 01/23/2018 Not-Taking traMADol HCl 50 MG 1 tablet as needed Orally Once a day for 30 days 12/28/2024 Active traMADol HCl 50 MG 1 tablet as needed Orally Once a day for 30 days 12/28/2024 Active Clindamycin HCl 300 MG TAKE 2 CAPSULES B Y MOUTH 1/2 HOUR PRIOR TO DENTAL APPT. Oral i/2 hour before dental for 1 days 04/18/2015 Active Eliquis 5 MG TAKE 1 TABLET BY CORRINE TWICE DAILY for 30 Active Immunizations Vaccine Route Administration Date Status Comme nts Flu Vaccine Unknown 01/18/2011 Administered Fluarix Quadrivalent Unknown 02/03/2016 Administered At work Fluarix Quadrivalent Unknown 02/09/2017 Administered At work Prevnar 13 IM Intramuscular 05/14/2017 Administered Fluarix Quadrivalent IM Intramuscular 01/21/2018 Administe red Fluarix Quadrivalent Unknown 12/22/2018 Administered rI TE aIDE PPSV23 (Pnemovax) IM Intramuscular 06/02/2019 Administered Fluarix Quadrivalent IM Intramuscular 12/30/2019 Administe red Covid Vaccine Unknown 07/06/2020 Administered Moderna SARS-COV-2 Moderna Unknown 08/03/2020 Administered Influenza High Dose IM Intramuscular 01/10/2021 Administer ed Influenza High Dose IM Intramuscular 01/09/2022 Administer ed PPSV23 (Pnemovax) Unknown 02/12/2017 Refused Flu Vaccine Unknown 12/30/2014 Others Social History Tobacco Use: Social History Observation Description Date Details (start date - stop date) Former Smoker NA - NA Tobacco Use/Smoking Question Answer Notes Patient is a former smoker Additional Findings: Tobacco Non-User Fo rmer smoker, currently using no form of tobacco Alcohol Screen Question Answer Notes How often did you have a dri nk containing alcohol in the past year? 2 to 3 times a week (3 points) How many drinks did you have on a typical day when you were drinking in the past year? 1 or 2 drinks (0 point) How often did you have 6 or more drinks on one occasion in the past year? Never (0 point) Points 3 Interpretation Positive Problems Problem Type SNOMED Code ICD Code Onset Dates Problem Status W/U Status Risk Notes Problem 743935327 Paroxysmal atria l fibrillation (I48.0) Active confirmed Problem 088427234 Other obesity (E66.8) Active confirme d Problem 51226933 Essential hypert ension (I10) Active confirmed Problem 6406199 Prediabetes (R73.09) Active confirmed Problem 900731470 Attention defici t disorder (F90.0) Active confirmed Problem 902119209 Morbid obesity (E66.01) Active confir med Problem 19594393 Sexual dysfuncti on (R37) Active confirmed Problem 927622880 Family history o f colon cancer (Z80.0) Active confirmed Problem 33486568 Dysthymia (F34.1) Active confirmed Problem 85194991 Attention defici t hyperactivity disorder (ADHD), combined type (F90.2) Active confirmed Problem 34036508 Atrial fibrillat ion, unspecified type (I48.91) Active confirmed Problem 379953719 Pure hypercholesterolemia (E78.00) Active confirmed Problem 300594971 Frequent falls (R29.6) Active confirm ed Problem 18796024 Gait disorder (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) Active confirmed Problem Spinal cord disorder (04414813) Cervical cord compression with myelopathy (G95.20) Active confirmed Problem 76385456 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 Vital Signs Blood pressure diastolic 80 mm Hg 05/28/2024 channing ght at home is 250 BP 136/80 by the [facility] no temp Height 67 in 10/26/2024 weight at home is 230 BP not taken today Blood pressure systolic 136 mm Hg 05/28/2024 weig ht at home is 250 BP 136/80 by the [facility] no temp Weight 230 lbs 10/26/2024 weight at home is 230 BP not taken today BMI 36.02 kg/m2 10/26/2024 weight at home is 230 BP not taken today Encounters Encounter Location Date Provider Diagnosis Tristin Song MD [address] [place] [id number] 03/17/2024 Tristin Song Paroxysmal atrial fibrillation I48.0 ; Bleeding nose R04.0 ; Chronic alcohol abuse F10.10 and Gait disorder R26.9 Tristin Song MD [address] [place] [address] [id number] 05/28/2024 Tristin Song Morbid obesity E66.0 1 and Frequent falls R29.6 Tristin Song MD [address] [place] [address] [id number] 10/06/2024 Tristin Song Leg weakness, bilateral R29.898 ; Cervical cord compression with myelopathy G95.20 and Knee pain M25.569 Tristin Song MD [address] [place] [address] [id number] 10/26/2024 Tristin Song Leg weakness, bilateral R29.898 ; Borderline hypertension R03.0 ; Knee pain, acute M25.569 and Advance care planning Z71.89 Tristin Song MD [address] [place] [address] [id number] 11/30/2024 Tristin Song Dysthymia F34.1 Tristin Snog MD [address] [place] [address] [id number] 02/25/2024 Tristin Song MD [address] [place] [address] [id number] 05/22/2024 Tristin Song MD [address] [place] [address] [id number] 05/29/2024 Tristin Song MD [address] [place] [address] [id number] 07/21/2024 Tristin Chaudhariardiirina Morbid obesity E66.0 1 Tristin Song MD [address] [place] [address] [id number] 10/01/2024 Tristin Song MD [address] [place] [address] [id number] 10/02/2024 Tristin Song MD [address] [place] [address] [id number] 10/16/2024 Tristin Song MD [address] [place] [address] [id number] 11/13/2024 Tristin Chaudhariardiirina Morbid obesity E66.0 1 Tristin Song MD [address] [place] [address] [id number] 11/17/2024 Tristinquoc Chaudhariardiirina Morbid obesity E66.0 1 Tristin Song MD [address] [place] [address] [id number] 11/24/2024 Tristinquoc Chaudhariardiirina Morbid obesity E66.0 1 Tristin Song MD [address] [place] [address] [id number] 12/04/2024 Tristin Song Dysthymia F34.1 Tristin Song MD [address] [place] [address] [id number] 12/11/2024 Tristin Song Leg weakness, bilateral R29.898 Tristin Song MD [address] [place] [address] [id number] 12/24/2024 Tristin Song MD [address] [place] [address] [id number] 12/28/2024 Tristin Song Leg weakness, bilateral R29.898 Tristin Song MD [address] [place], [place] [id number] 12/28/2024 Tristin Song MD [address] [place], [place] [id number] 12/29/2024 Tristin Song Leg weakness, bilateral R29.898 [...] Bleeding nose (ICD-10 - R04.0) will monitor 05/28/2024 Morbid obesity (ICD-10 - E66.01) 05/28/2024 Frequent falls (ICD-10 - R29.6) 10/06/2024 Leg weakness, bilateral (ICD-10 - R29.898) she states she cannot walk as her legs are too weak. had been seen by neurology and they suggested mri of brain and c spine but did not order those. i don't have the consult which was done while she was in the rehab need to try to get the consult results Total time spent on the date of the encounter is 35 minutes including both face to face time spent and time spent reviewing documentation, and counseling the patient. 10/06/2024 Cervical cord compression with myelopathy (ICD-10 - G95.20) 10/26/2024 Leg weakness, bilateral (ICD-10 - R29.898) 10/26/2024 Borderline hypertension (ICD-10 - R03.0) will follow 11/30/2024 Dysthymia (ICD-10 - F34.1) stable, will continue currentregiment 07/21/2024 Morbid obesity (ICD-10 - E66.01) 11/13/2024 Morbid obesity (ICD-10 - E66.01) 11/17/2024 Morbid obesity (ICD-10 - E66.01) 11/24/2024 Morbid obesity (ICD-10 - E66.01) 12/04/2024 Dysthymia (ICD-10 - F34.1) 12/11/2024 Leg weakness, bilateral (ICD-10 - R29.898) 12/28/2024 Leg weakness, bilateral (ICD-10 - R29.898) 12/29/2024 Leg weakness, bilateral (ICD-10 - R29.898) 03/17/2024 Chronic alcohol abuse (ICD-10 - F10.10) is going to try to cut back on drinking. 10/06/2024 Knee pain (ICD-10 - M25.569) has been having some pain in knees. is using some tramadol but trying not to take and is using occasionally 10/26/2024 Knee pain, acute (ICD-10 - M25.569) to go see the ortho 03/17/2024 Gait disorder (ICD-10 - R26.9) referral to physical therapy at [facility]/ orders for PT mailed to patient 10/26/2024 Advance care planning (ICD-10 - Z71.89) Plan Of Treatment Pending Test Test Name Order Date CULTURE, URINE, ROUTINE 09/12/2012 MRI BRAIN W&WO CONTRAST 10/06/2024 MRI CERVICAL SPINE W&WO CONTRAST 025 MAMMOGRAM DIGITAL BILATERAL SCREEN 05/23 Next Appt Details Provider Name:Tristin lazaro, 02/01/2025 11:15:00 AM, [address] [place] [address], [address], [place], [place], [id number], Insurance Providers Payer Name Payer Address Payer Phone Subscriber Number Group Number Insured Name Patient Relationship to Insured Coverage Start Date Coverage End Date [employer] [address] [place] [address] [id number] Candelaria Giang Self - patient is the insured [employer] [place] [address] [place] [address] [id number] Candelaria Giang Self - patient is the insured Medical (General) History Medical History History ICD Code colonoscopy 2010 adenomas du e in 2016; colonoscopy done 02/[address] Hood - repeat 5 years H/O GI bleed
--- OUTSIDE RECORDS SUMMARY | 2025-01-01 17:00 | XMS_ITS | Encounter Summary ---
Author Organization [facility] Address [address] [place] [address] Care Team Providers Care Liquid Loader Name Role Phone Ceasar Burton MD Primary Care Provider +1- [phone] Encounter Details Date Type Department Care Team (Late st Contact Info) Description 05/11/2024 Lab Requisition [facility] - Main Lab [address] [place] [address] Ceasar Burton MD [address] [place] [address] Anemia, unspecified; Essential (primary) hypertension Social History Tobacco Use Types Packs/Day Years Used Date Smoking Tobacco: Never Assessed Comments Unknown Sex and Gender Information Value Date Recorded Sex Assigned at Not on file Legal Sex Female 2:35 AM EST Gender Identity Not on file Sexual Orientation Not on file documented as of this encounter Plan of Treatment Not on file documented as of this encounter Procedures Procedure Name Priority Date/Time Associated Diagnosis Comments COMPLETE BLOOD COUNT Routine 05/11/2024 6:38 AM EST Anemia, unspecified Essential (primary) hypertension COMPREHENSIVE METABOLIC PANEL Routine 05/11/2024 6:38 AM EST Anemia, unspecified Essential (primary) hypertension documented in this encounter Results * (ABNORMAL) Comprehensive metabolic panel (05/11/2024 6:38 AM EST) Sodium 136 133 - 145 mmol/L LAB CHEMISTRY METHOD 05/11/2024 3:58 PM [facility] Potassium 3.9 3.5 - 5.5 mmol/L LAB CHEMISTRY METHOD 05/11/2024 3:58 PM [facility] Chloride 102 96 - 110 mmol/L LAB CHEMISTRY METHOD 05/11/2024 3:58 PM [facility] CO2 28 21 - 32 mmol/L LAB CHEMISTRY METHOD 05/11/2024 3:58 PM [facility] Anion Gap 6 3 - 11 LAB CHEMISTRY METHOD 05/11/2024 3:58 PM [facility] Glucose 78 70 - 100 mg/dL LAB CHEMISTRY METHOD 05/11/2024 3:58 PM [facility] BUN 16 5 - 25 mg/dL LAB CHEMISTRY METHOD 05/11/2024 3:58 PM [facility] Creatinine 0.61 0.50 - 1.10 mg/dL LAB CHEMISTRY METHOD 05/11/2024 3:58 PM [facility] eGFR 96 >=60 mL/min/1. 73m2 LAB CHEMISTRY METHOD 05/11/2024 3:58 PM [facility] Comment:Calculation based on the Chronic Kidney Disease Epidemiology Collaboration (CKD-EPI) equation refit without adjustment for race. BUN/Creatinine Ratio 26.2 LAB CHEMISTRY METHOD 05/11/2024 3:58 PM [facility] Calcium 8.6 8.5 - 10.5 mg/dL LAB CHEMISTRY METHOD 05/11/2024 3:58 PM [facility] AST (SGOT) 21 10 - 42 unit/L LAB CHEMISTRY METHOD 05/11/2024 3:58 PM [facility] ALT (SGPT) 23 10 - 60 unit/L LAB CHEMISTRY METHOD 05/11/2024 3:58 PM [facility] Alkaline Phosphatase 75 42 - 121 unit/L LAB CHEMISTRY METHOD 05/11/2024 3:58 PM [facility] Total Protein 5.5(L) 6.0 - 8.0 g/dL LAB CHEMISTRY METHOD 05/11/2024 3:58 PM [facility] Albumin 2.8(L) 3.2 - 5.0 g/dL LAB CHEMISTRY METHOD 05/11/2024 3:58 PM [facility] Total Bilirubin 0.4 0.0 - 1.4 mg/dL LAB CHEMISTRY METHOD 05/11/2024 3:58 PM [facility] Blood Venous blood specimen / Unknown Venipuncture / Unknown 05/11/2024 6:38 AM EST 05/11/2024 10:54 AM EST us Ceasar Burton MD LAB BLOOD ORDERABLES Final Result [facility] [address] [place] [address], * (ABNORMAL) Complete blood count (05/11/2024 6:38 AM EST) WBC 4.7(L) 4.8 - 10.8 K/mcL LAB HEMETOLOGY METHOD 05/11/2024 12:30 PM [facility] RBC 3.90 3.80 - 4.80 M/mcL LAB HEMETOLOGY METHOD 05/11/2024 12:30 PM [facility] Hemoglobin 11.5 11.5 - 16.0 g/dL LAB HEMETOLOGY METHOD 05/11/2024 12:30 PM [facility] Hematocrit 36.3 35.0 - 47.0 % LAB HEMETOLOGY METHOD 05/11/2024 12:30 PM [facility] MCV 93.6 79.0 - 98.0 FL LAB HEMETOLOGY METHOD 05/11/2024 12:30 PM [facility] MCH 29.6 27.0 - 32.0 pcg LAB HEMETOLOGY METHOD 05/11/2024 12:30 PM EST [facility] MCHC 31.7(L) 32.0 - 37.0 g/dL LAB HEMETOLOGY METHOD 05/11/2024 12:30 PM [facility] RDW 15.5(H) 11.0 - 15.0 % LAB HEMETOLOGY METHOD 05/11/2024 12:30 PM [facility] Platelets 247 130 - 400 K/mcL LAB HEMETOLOGY METHOD 05/11/2024 12:30 PM [facility] MPV 9.9 7.0 - 11.0 FL LAB HEMETOLOGY METHOD 05/11/2024 12:30 PM [facility] NRBC 0.0 <1.0 % LAB HEMETOLOGY METHOD 05/11/2024 12:30 PM [facility] NRBC Absolute 0.00 <0.10 K/mcL LAB HEMETOLOGY METHOD 05/11/2024 12:30 PM [facility] Blood Venous blood specimen / Unknown Venipuncture / Unknown 05/11/2024 6:38 AM EST 05/11/2024 10:54 AM EST us Ceasar Burton MD LAB BLOOD ORDERABLES Final Result [facility] [address] [place] [address], documented in this encounter Visit Diagnoses Diagnosis Anemia, unspecified Essential (primary) hypertension Unspecified essential hypertension documented in this encounter Care Teams Liquid Loader Relationship Specialty Start Date End Date Ceasar Burton MD [address] [place] [phone] PCP - General Internal Medicine 05/08/24 documented as of this encounter
--- OUTSIDE RECORDS SUMMARY | 2025-01-01 17:00 | XMS_ITS | Encounter Summary ---
Author Organization [facility] Address [address] [place] [address] Care Team Providers Care Flavoring Maker Name Role Phone Ceasar Burton MD Primary Care Provider +1- [phone] Encounter Details Date Type Department Care Team (Late st Contact Info) Description 05/08/[address] [facility] - Main Lab [address] [facility] [place] [address] Ceasar Burton MD [address] [place] [address] Unspecified atrial fibrillation (CMS/HCC V24, CMS/HCC V28); Hypotension, unspecified Social History Tobacco Use Types Packs/Day Years [...] Associated Diagnosis Comments COMPLETE BLOOD COUNT Routine 05/08/2024 6:12 AM EST Unspecified atrial fibrillation (CMS/HCC) Hypotension, unspecified COMPREHENSIVE METABOLIC PANEL Routine 05/08/2024 6:12 AM EST Unspecified atrial fibrillation (CMS/HCC) Hypotension, unspecified documented in this encounter Results * (ABNORMAL) Comprehensive metabolic panel (05/08/2024 6:12 AM EST) [facility] Sodium 137 133 - 145 mmol/L LAB CHEMISTRY METHOD 05/08/2024 11:03 AM [facility] Potassium 4.2 3.5 - 5.5 mmol/L LAB CHEMISTRY METHOD 05/08/2024 11:03 AM [facility] Chloride 102 96 - 110 mmol/L LAB CHEMISTRY METHOD 05/08/2024 11:03 AM [facility] CO2 29 21 - 32 mmol/L LAB CHEMISTRY METHOD 05/08/2024 11:03 AM [facility] Anion Gap 6 3 - 11 LAB CHEMISTRY METHOD 05/08/2024 11:03 AM [facility] Glucose 87 70 - 100 mg/dL LAB CHEMISTRY METHOD 05/08/2024 11:03 AM [facility] BUN 11 5 - 25 mg/dL LAB CHEMISTRY METHOD 05/08/2024 11:03 AM [facility] Creatinine 0.62 0.50 - 1.10 mg/dL LAB CHEMISTRY METHOD 05/08/2024 11:03 AM [facility] eGFR 96 >=60 mL/min/1. 73m2 LAB CHEMISTRY METHOD 05/08/2024 11:03 AM [facility] Comment:Calculation based on the Chronic Kidney Disease Epidemiology Collaboration (CKD-EPI) equation refit without adjustment for race. BUN/Creatinine Ratio 17.7 LAB CHEMISTRY METHOD 05/08/2024 11:03 AM [facility] Calcium 8.6 8.5 - 10.5 mg/dL LAB CHEMISTRY METHOD 05/08/2024 11:03 AM [facility] AST (SGOT) 28 10 - 42 unit/L LAB CHEMISTRY METHOD 05/08/2024 11:03 AM [facility] ALT (SGPT) 17 10 - 60 unit/L LAB CHEMISTRY METHOD 05/08/2024 11:03 AM [facility] Alkaline Phosphatase 78 42 - 121 unit/L LAB CHEMISTRY METHOD 05/08/2024 11:03 AM [facility] Total Protein 5.6(L) 6.0 - 8.0 g/dL LAB CHEMISTRY METHOD 05/08/2024 11:03 AM [facility] Albumin 2.9(L) 3.2 - 5.0 g/dL LAB CHEMISTRY METHOD 05/08/2024 11:03 AM [facility] Total Bilirubin 0.5 0.0 - 1.4 mg/dL LAB CHEMISTRY METHOD 05/08/2024 11:03 AM [facility] Blood Venous blood specimen / Unknown Venipuncture / Unknown 05/08/2024 6:12 AM EST 05/08/2024 9:48 AM EST us Ceasar Burton MD LAB BLOOD ORDERABLES Final Result [facility] [address] [place] [address], * (ABNORMAL) Complete blood count (05/08/2024 6:12 AM EST) WBC 5.9 4.8 - 10.8 K/mcL LAB HEMETOLOGY METHOD 05/08/2024 10:26 AM [facility] RBC 3.80 3.80 - 4.80 M/mcL LAB HEMETOLOGY METHOD 05/08/2024 10:26 AM [facility] Hemoglobin 11.2(L) 11.5 - 16.0 g/dL LAB HEMETOLOGY METHOD 05/08/2024 10:26 AM [facility] Hematocrit 35.7 35.0 - 47.0 % LAB HEMETOLOGY METHOD 05/08/2024 10:26 AM [facility] MCV 93.0 79.0 - 98.0 FL LAB HEMETOLOGY METHOD 05/08/2024 10:26 AM [facility] MCH 29.2 27.0 - 32.0 pcg LAB HEMETOLOGY METHOD 05/08/2024 10:26 AM EST [facility] MCHC 31.4(L) 32.0 - 37.0 g/dL LAB HEMETOLOGY METHOD 05/08/2024 10:26 AM [facility] RDW 15.5(H) 11.0 - 15.0 % LAB HEMETOLOGY METHOD 05/08/2024 10:26 AM [facility] Platelets 227 130 - 400 K/mcL LAB HEMETOLOGY METHOD 05/08/2024 10:26 AM [facility] MPV 9.6 7.0 - 11.0 FL LAB HEMETOLOGY METHOD 05/08/2024 10:26 AM [facility] NRBC 0.0 <1.0 % LAB HEMETOLOGY METHOD 05/08/2024 10:26 AM [facility] NRBC Absolute 0.00 <0.10 K/mcL LAB HEMETOLOGY METHOD 05/08/2024 10:26 AM [facility] Blood Venous blood specimen / Unknown Venipuncture / Unknown 05/08/2024 6:12 AM EST 05/08/2024 9:48 AM EST us Ceasar Burton MD LAB BLOOD ORDERABLES Final Result [facility] [address] [place] [address], documented in this encounter Visit Diagnoses Diagnosis Unspecified atrial fibrillation (CMS/HCC V24, CMS/HCC V28) Hypotension, unspecified documented in this encounter Care Teams Flavoring Maker Relationship Specialty Start Date End Date Ceasar Burton MD [address] [place] [id number] PCP - General Internal Medicine 05/08/24 documented as of this encounter
--- OUTSIDE RECORDS SUMMARY | 2025-01-01 17:01 | XMS_ITS | Encounter Summary ---
Author Organization [facility] Address [address] [place] [address] Care Team Providers Care Wheelman Name Role Phone Ceasar Burton MD Primary Care Provider +1- [phone] Encounter Details Date Type Department Care Team (Late st Contact Info) Description 07/27/2024 Lab Requisition [facility] - Main Lab [address] [facility] [place] [address] Leslie Garrison MD [address] [place] [address] Unspecified atrial fibrillation (CMS/HCC V24, CMS/HCC V28) [...] Associated Diagnosis Comments COMPLETE BLOOD COUNT Routine 07/28/2024 5:56 AM EDT Unspecified atrial fibrillation (CMS/HCC V24, CMS/HCC V28) BASIC METABOLIC PANEL Routine 07/28/2024 5:56 AM EDT Unspecified atrial fibrillation (CMS/HCC V24, CMS/HCC V28) documented in this encounter Results * (ABNORMAL) Basic metabolic panel (07/28/2024 5:56 AM EDT) Sodium 137 133 - 145 mmol/L LAB CHEMISTRY METHOD 07/28/2024 10:44 AM [facility] Potassium 4.0 3.5 - 5.5 mmol/L LAB CHEMISTRY METHOD 07/28/2024 10:44 AM [facility] Chloride 105 96 - 110 mmol/L LAB CHEMISTRY METHOD 07/28/2024 10:44 AM [facility] CO2 26 21 - 32 mmol/L LAB CHEMISTRY METHOD 07/28/2024 10:44 AM [facility] Anion Gap 6 3 - 11 LAB CHEMISTRY METHOD 07/28/2024 10:44 AM [facility] Glucose 68(L) 70 - 100 mg/dL LAB CHEMISTRY METHOD 07/28/2024 10:44 AM [facility] BUN 21 5 - 25 mg/dL LAB CHEMISTRY METHOD 07/28/2024 10:44 AM [facility] Comment:Results verified by repeat testing Creatinine 0.71 0.50 - 1.10 mg/dL LAB CHEMISTRY METHOD 07/28/2024 10:44 AM [facility] eGFR 92 >=60 mL/min/1. 73m2 LAB CHEMISTRY METHOD 07/28/2024 10:44 AM [facility] Comment:Calculation based on the Chronic Kidney Disease Epidemiology Collaboration (CKD-EPI) equation refit without adjustment for race. BUN/Creatinine Ratio 29.6 LAB CHEMISTRY METHOD 07/28/2024 10:44 AM [facility] Calcium 8.5 8.5 - 10.5 mg/dL LAB CHEMISTRY METHOD 07/28/2024 10:44 AM [facility] Blood Venous blood specimen / Unknown Venipuncture / Unknown 07/28/2024 5:56 AM EDT 07/28/2024 9:27 AM EDT Leslie Garrison MD LAB BLOOD ORDERABLES Final Resul t [facility] [address] [place] [address], * (ABNORMAL) Complete blood count (07/28/2024 5:56 AM EDT) [facility] Signature WBC 5.3 4.8 - 10.8 K/mcL LAB HEMETOLOGY METHOD 07/28/2024 9:59 AM EDT [facility] RBC 3.80 3.80 - 4.80 M/mcL LAB HEMETOLOGY METHOD 07/28/2024 9:59 AM EDT [facility] Hemoglobin 11.1(L) 11.5 - 16.0 g/dL LAB HEMETOLOGY METHOD 07/28/2024 9:59 AM EDT [facility] Hematocrit 34.8(L) 35.0 - 47.0 % LAB HEMETOLOGY METHOD 07/28/2024 9:59 AM EDT [facility] MCV 90.9 79.0 - 98.0 FL LAB HEMETOLOGY METHOD 07/28/2024 9:59 AM EDT [facility] MCH 29.0 27.0 - 32.0 pcg LAB HEMETOLOGY METHOD [facility] MCHC 31.9(L) 32.0 - 37.0 g/dL LAB HEMETOLOGY METHOD 07/28/2024 9:59 AM EDT [facility] RDW 15.0 11.0 - 15.0 % LAB HEMETOLOGY METHOD 07/28/2024 9:59 AM EDT [facility] Platelets 332 130 - 400 K/mcL LAB HEMETOLOGY METHOD [facility]/28[facility]2024 9[facility] MPV 9.1 7.0 - 11.0 FL LAB HEMETOLOGY METHOD 07/28/2024 9:59 AM EDT [facility] NRBC 0.0 <1.0 % LAB HEMETOLOGY METHOD 07/28/2024 9:59 AM EDT [facility] NRBC Absolute 0.00 <0.10 K/mcL LAB HEMETOLOGY METHOD 07/28/2024 9:59 AM EDT [facility] Blood Venous blood specimen / Unknown Venipuncture / Unknown 07/28/2024 5:56 AM EDT 07/28/2024 9:27 AM EDT us Leslie Garrison MD LAB BLOOD ORDERABLES Final Resul t [facility] [address] [place] [address], documented in this encounter Visit Diagnoses Diagnosis Unspecified atrial fibrillation (CMS/HCC V24, CMS/HCC V28) documented in this encounter Care Teams Wheelman Relationship Specialty Start Date End Date Ceasar Burton MD [address] [place] [id number] PCP - General Internal Medicine 05/08/24 documented as of this encounter
--- OUTSIDE RECORDS SUMMARY | 2025-01-01 17:01 | XMS_ITS | Encounter Summary ---
Author Organization [facility] Address [address] [place] [address] Care Team Providers Care Tobacco Primer Machine Operator Name Role Phone Ceasar Burton MD Primary Care Provider +1- [phone] Encounter Details Date Type Department Care Team (Late st Contact Info) Description 09/14/2024 Lab Requisition [facility] - Main Lab [address] [facility] [place] [address] Leslie Garrison MD [address] [place] [address] Unspecified atrial fibrillation (CMS/HCC V24, CMS/HCC V28) [...] Associated Diagnosis Comments COMPLETE BLOOD COUNT Routine 09/15/2024 7:19 AM EDT Unspecified atrial fibrillation (CMS/HCC V24, CMS/HCC V28) BASIC METABOLIC PANEL Routine 09/15/2024 7:19 AM EDT Unspecified atrial fibrillation (CMS/HCC V24, CMS/HCC V28) documented in this encounter Results * Basic metabolic panel (09/15/2024 7:19 AM EDT) Sodium 139 133 - 145 mmol/L LAB CHEMISTRY METHOD 09/15/2024 10:19 AM [facility] Potassium 4.2 3.5 - 5.5 mmol/L LAB CHEMISTRY METHOD 09/15/2024 10:19 AM [facility] Chloride 108 96 - 110 mmol/L LAB CHEMISTRY METHOD 09/15/2024 10:19 AM [facility] CO2 26 21 - 32 mmol/L LAB CHEMISTRY METHOD 09/15/2024 10:19 AM [facility] Anion Gap 5 3 - 11 LAB CHEMISTRY METHOD 09/15/2024 10:19 AM [facility] Glucose 77 70 - 100 mg/dL LAB CHEMISTRY METHOD 09/15/2024 10:19 AM [facility] BUN 14 5 - 25 mg/dL LAB CHEMISTRY METHOD 09/15/2024 10:19 AM [facility] Creatinine 0.62 0.50 - 1.10 mg/dL LAB CHEMISTRY METHOD 09/15/2024 10:19 AM [facility] eGFR 96 >=60 mL/min/1. 73m2 LAB CHEMISTRY METHOD 09/15/2024 10:19 AM [facility] Comment:Calculation based on the Chronic Kidney Disease Epidemiology Collaboration (CKD-EPI) equation refit without adjustment for race. BUN/Creatinine Ratio 22.6 LAB CHEMISTRY METHOD 09/15/2024 10:19 AM [facility] Calcium 9.0 8.5 - 10.5 mg/dL LAB CHEMISTRY METHOD 09/15/2024 10:19 AM [facility] Blood Venous blood specimen / Unknown Venipuncture / Unknown 09/15/2024 7:19 AM EDT 09/15/2024 9:06 AM EDT us Leslie Garrison MD LAB BLOOD ORDERABLES Final Resul t [facility] [address] [place] [address], * (ABNORMAL) Complete blood count (09/15/2024 7:19 AM EDT) WBC 4.3(L) 4.8 - 10.8 K/mcL LAB HEMETOLOGY METHOD 09/15/2024 9:31 AM EDT [facility] RBC 4.20 3.80 - 4.80 M/mcL LAB HEMETOLOGY METHOD 09/15/2024 9:31 AM EDT [facility] Hemoglobin 11.3(L) 11.5 - 16.0 g/dL LAB HEMETOLOGY METHOD 09/15[facility]2024 9[facility] Hematocrit 35.8 35.0 - 47.0 % LAB HEMETOLOGY METHOD 09/15/2024 9:31 AM [facility] MCV 85.9 79.0 - 98.0 FL LAB HEMETOLOGY METHOD 09/15/2024 9:31 AM [facility] MCH 27.1 27.0 - 32.0 pcg LAB HEMETOLOGY METHOD 09/15/2024 9:31 AM [facility] MCHC 31.6(L) 32.0 - 37.0 g/dL LAB HEMETOLOGY METHOD 09/15/2024 9:31 AM [facility] RDW 14.0 11.0 - 15.0 % LAB HEMETOLOGY METHOD 09/15/2024 9:31 AM [facility] Platelets 285 130 - 400 K/mcL LAB HEMETOLOGY METHOD 09/15/2024 9:31 AM [facility] MPV 10.4 7.0 - 11.0 FL LAB HEMETOLOGY METHOD 09/15/2024 9:31 AM EDT [facility] NRBC 0.0 <1.0 % LAB HEMETOLOGY METHOD 09/15/2024 9:31 AM EDT [facility] NRBC Absolute 0.00 <0.10 K/mcL LAB HEMETOLOGY METHOD 09/15/2024 9:31 AM EDT [facility] Blood Venous blood specimen / Unknown Venipuncture / Unknown 09/15/2024 7:19 AM EDT 09/15/2024 9:06 AM EDT us Leslie Garrison MD LAB BLOOD ORDERABLES Final Resul t [facility] [address] [place] [address], documented in this encounter Visit Diagnoses Diagnosis Unspecified atrial fibrillation (CMS/HCC V24, CMS/HCC V28) documented in this encounter Care Teams Tobacco Primer Machine Operator Relationship Specialty Start Date End Date Ceasar Burton MD [address] [place] [phone] PCP - General Internal Medicine 05/08/24 documented as of this encounter
--- OUTSIDE RECORDS SUMMARY | 2025-01-01 17:01 | XMS_ITS | Encounter Summary ---
Author Organization [facility] Address [address] [place] [address] Care Team Providers Care Manager Fund Name Role Phone Ceasar Burton MD Primary Care Provider +1- [phone] Encounter Details Date Type Department Care Team (Late st Contact Info) Description 08/10/2024 Lab Requisition [facility] - Main Lab [address] [facility] [place] [address] Leslie Garrison MD [address] [place] [address] Unspecified atrial fibrillation (CMS/HCC V24, CMS/HCC V28) [...] Associated Diagnosis Comments COMPLETE BLOOD COUNT Routine 08/11/2024 6:16 AM EDT Unspecified atrial fibrillation (CMS/HCC V24, CMS/HCC V28) BASIC METABOLIC PANEL Routine 08/11/2024 6:16 AM EDT Unspecified atrial fibrillation (CMS/HCC V24, CMS/HCC V28) documented in this encounter Results * (ABNORMAL) Basic metabolic panel (08/11/2024 6:16 AM EDT) Sodium 139 133 - 145 mmol/L LAB CHEMISTRY METHOD 08/11/2024 11:03 AM [facility] Potassium 4.5 3.5 - 5.5 mmol/L LAB CHEMISTRY METHOD 08/11/2024 11:03 AM [facility] Chloride 106 96 - 110 mmol/L LAB CHEMISTRY METHOD 08/11/2024 11:03 AM [facility] CO2 26 21 - 32 mmol/L LAB CHEMISTRY METHOD 08/11/2024 11:03 AM [facility] Anion Gap 7 3 - 11 LAB CHEMISTRY METHOD 08/11/2024 11:03 AM [facility] Glucose 67(L) 70 - 100 mg/dL LAB CHEMISTRY METHOD 08/11/2024 11:03 AM [facility] BUN 11 5 - 25 mg/dL LAB CHEMISTRY METHOD 08/11/2024 11:03 AM [facility] Creatinine 0.64 0.50 - 1.10 mg/dL LAB CHEMISTRY METHOD 08/11/2024 11:03 AM [facility] eGFR 95 >=60 mL/min/1. 73m2 LAB CHEMISTRY METHOD 08/11/2024 11:03 AM [facility] Comment:Calculation based on the Chronic Kidney Disease Epidemiology Collaboration (CKD-EPI) equation refit without adjustment for race. BUN/Creatinine Ratio 17.2 LAB CHEMISTRY METHOD 08/11/2024 11:03 AM [facility] Calcium 9.1 8.5 - 10.5 mg/dL LAB CHEMISTRY METHOD 08/11/2024 11:03 AM [facility] Blood Venous blood specimen / Unknown Venipuncture / Unknown 08/11/2024 6:16 AM EDT 08/11/2024 9:26 AM EDT Leslie Garrison MD LAB BLOOD ORDERABLES Final Resul t [facility] [address] [place] [address], * (ABNORMAL) Complete blood count (08/11/2024 6:16 AM EDT) [facility] Signature WBC 4.0(L) 4.8 - 10.8 K/mcL LAB HEMETOLOGY METHOD 08/11/2024 10:26 AM EDT [facility] RBC 4.00 3.80 - 4.80 M/mcL LAB HEMETOLOGY METHOD 08/11/2024 10:26 AM EDT [facility] Hemoglobin 11.5 11.5 - 16.0 g/dL LAB HEMETOLOGY METHOD [facility]24 [facility] Hematocrit 36.7 35.0 - 47.0 % LAB HEMETOLOGY METHOD 08/11/2024 10:[facility] MCV 90.8 79.0 - 98.0 FL LAB HEMETOLOGY METHOD 08/11/2024 10:26 AM EDT [facility] MCH 28.5 27.0 - 32.0 pcg LAB HEMETOLOGY METHOD 08/11/2024 10:26 AM [facility] MCHC 31.3(L) 32.0 - 37.0 g/dL LAB HEMETOLOGY METHOD 08/11/2024 10:26 AM EDT [facility] RDW 14.5 11.0 - 15.0 % LAB HEMETOLOGY METHOD 08/11/2024 10:26 AM EDT [facility] Platelets 338 130 - 400 K/mcL LAB HEMETOLOGY METHOD 08/11/2024 10:26 AM EDT [facility] MPV 9.9 7.0 - 11.0 FL LAB HEMETOLOGY METHOD 08/11/2024 10:26 AM EDT [facility] NRBC 0.0 <1.0 % LAB HEMETOLOGY METHOD 08/11/2024 10:26 AM EDT [facility] NRBC Absolute 0.00 <0.10 K/mcL LAB HEMETOLOGY METHOD 08/11/2024 10:26 AM EDT [facility] Blood Venous blood specimen / Unknown Venipuncture / Unknown 08/11/2024 6:16 AM EDT 08/11/2024 9:26 AM EDT us Leslie Garrison MD LAB BLOOD ORDERABLES Final Resul t [facility] [address] [place] [address], documented in this encounter Visit Diagnoses Diagnosis Unspecified atrial fibrillation (CMS/HCC V24, CMS/HCC V28) documented in this encounter Care Teams Manager Fund Relationship Specialty Start Date End Date Ceasar Burton MD [address] [place] [id number] PCP - General Internal Medicine 05/08/24 documented as of this encounter
--- OUTSIDE RECORDS SUMMARY | 2025-01-01 17:01 | XMS_ITS | Clinical Summary ---
Author Organization [facility] Address [address] [address] Phone Care Team Providers Care Motor Vehicle Parts Interpreter Name Role Phone Tristin Song MD Primary Care Provider Social History Tobacco Use Types Packs/Day Years Used Date Smoking Tobacco: Never Assessed Education Answer Date Recorded Are you interested in more education? Not on bebeto e 04/15/2024 Are you concerned about learning? Not on file 04/15/2024 No 04/15/2024 No 04/15/2024 Digital Access Answer Date Recorded No 04/15/2024 No 04/15/2024 Reliable internet access at home? Not on file 04/15/2024 Device with a working camera? Not on file Comments Unknown Sex and Gender Information Value Date Recorded Sex Assigned at Not on file Legal Sex Female 9:57 PM EDT Gender Identity Not on file Sexual Orientation Not on file Plan of Treatment Health Maintenance Due Date Last Done Comments Adult Td,Tdap Booster 1953 LIPID PANEL 1953 DEPRESSION SCREENING 1965 SMOKING Hx and SMOKELESS TOB ACCO SCREENING 1966 HEPATITIS C SCREENING 11/01/1971 MAMMOGRAM 1993 COLOGUARD 1998 COLONOSCOPY 1998 COLORECTAL CANCER SCREENING 1998 FIT TEST 1998 FOBT 1998 SIGMOIDOSCOPY 1998 VIRTUAL COLONOSCOPY 1998 PNEUMOCOCCAL VACCINES (50+ y ears) (1 of 1 - PCV) 11/01/2003 ZOSTER VACCINES (1 of 2) 11/01/2003 OSTEOPOROSIS SCREENING INITI AL (ONE-TIME) 2018 INFLUENZA VACCINE (#1) 2024 COVID-19 VACCINE ( - 2023-2 5 season) 2024 RSV VACCINE (1 - 1-dose 75+ series) 2028 HEPATITIS A VACCINES Aged Out No long er eligible based on patient's age to complete this topic HIB VACCINES Aged Out No longer eligi ble based on patient's age to complete this topic MENINGOCOCCAL VACCINES (ACWY) Aged Out No longer eligible based on patient's age to complete this topic MENINGOCOCCAL VACCINES (B) Aged Out N o longer eligible based on patient's age to complete this topic Medical Devices Not on file Insurance MEDICARE PART A & B Member Subscriber Plan / Payer (Ef fective 2018-Present) Name:Candelaria Giang Member ID:[id number] Relation to Subscriber:Self Name:Candelaria Giang Subscriber ID:[id number] Payer ID:[id number] Group ID:Not on file Type:Medicare Address: [facility] [employer] [facility] [address] [place] [address] [facility] MEDEX SUPPLEMENT MEDICARE PART A & B [employer] SUPPLEMENT ([place] [id number] MEDICARE PART A & B [employer] SUPPLEMENT MEDICARE PART A & B [employer] SUPPLEMENT MEDICARE PART A & B [employer] MED[employer] SUPPLEMENT [place] MEDICARE PART A & B [facility] MEDEX SUPPLEMENT Care Teams Motor Vehicle Parts Interpreter Relationship Specialty Start Date End Date Tristin Song MD [address] [place] [address] [place] [address] PCP - General Internal Medicine 04/15/24 Additional Source Comments The information contained in this document represents components of the legal health record. It is not the complete legal health record.[facility]
--- OUTSIDE RECORDS SUMMARY | 2025-01-01 17:01 | XMS_ITS | Encounter Summary ---
Author Organization [facility] Address [address] [place] [address] Care Team Providers Care Welding Machine Assembler Name Role Phone Ceasar Burton MD Primary Care Provider +1- [phone] Encounter Details Date Type Department Care Team (Late st Contact Info) Description 08/17/2024 Lab Requisition [facility] - Main Lab [address] [facility] [place] [address] Leslie Garrison MD [address] [place] [address] Unspecified atrial fibrillation (CMS/HCC V24, CMS/HCC V28) [...] Associated Diagnosis Comments COMPLETE BLOOD COUNT Routine 08/18/2024 5:33 AM EDT Unspecified atrial fibrillation (CMS/HCC V24, CMS/HCC V28) BASIC METABOLIC PANEL Routine 08/18/2024 5:33 AM EDT Unspecified atrial fibrillation (CMS/HCC V24, CMS/HCC V28) documented in this encounter Results * Basic metabolic panel (08/18/2024 5:33 AM EDT) Sodium 138 133 - 145 mmol/L LAB CHEMISTRY METHOD 08/18/2024 10:46 AM [facility] Potassium 4.1 3.5 - 5.5 mmol/L LAB CHEMISTRY METHOD 08/18/2024 10:46 AM [facility] Chloride 105 96 - 110 mmol/L LAB CHEMISTRY METHOD 08/18/2024 10:46 AM [facility] CO2 25 21 - 32 mmol/L LAB CHEMISTRY METHOD 08/18/2024 10:46 AM [facility] Anion Gap 8 3 - 11 LAB CHEMISTRY METHOD 08/18/2024 10:46 AM [facility] Glucose 72 70 - 100 mg/dL LAB CHEMISTRY METHOD 08/18/2024 10:46 AM [facility] BUN 15 5 - 25 mg/dL LAB CHEMISTRY METHOD 08/18/2024 10:46 AM [facility] Creatinine 0.62 0.50 - 1.10 mg/dL LAB CHEMISTRY METHOD 08/18/2024 10:46 AM [facility] eGFR 96 >=60 mL/min/1. 73m2 LAB CHEMISTRY METHOD 08/18/2024 10:46 AM [facility] Comment:Calculation based on the Chronic Kidney Disease Epidemiology Collaboration (CKD-EPI) equation refit without adjustment for race. BUN/Creatinine Ratio 24.2 LAB CHEMISTRY METHOD 08/18/2024 10:46 AM [facility] Calcium 8.8 8.5 - 10.5 mg/dL LAB CHEMISTRY METHOD 08/18/2024 10:46 AM [facility] Blood Venous blood specimen / Unknown Venipuncture / Unknown 08/18/2024 5:33 AM EDT 08/18/2024 9:26 AM EDT us Leslie Garrison MD LAB BLOOD ORDERABLES Final Resul t [facility] [address] [place] [address], * (ABNORMAL) Complete blood count (08/18/2024 5:33 AM EDT) WBC 3.9(L) 4.8 - 10.8 K/mcL LAB HEMETOLOGY METHOD 08/18/2024 10:33 AM EDT [facility] RBC 4.00 3.80 - 4.80 M/mcL LAB HEMETOLOGY METHOD 08/18/2024 10:33 AM EDT [facility] Hemoglobin 11.5 11.5 - 16.0 g/dL LAB HEMETOLOGY METHOD 08/18/2024 10:33 AM EDT [facility] Hematocrit 35.9 35.0 - 47.0 % LAB HEMETOLOGY METHOD 08/18/2024 10:33 AM EDT [facility] MCV 89.1 79.0 - 98.0 FL LAB HEMETOLOGY METHOD 08/18/2024 10:33 AM EDT [facility] MCH 28.5 27.0 - 32.0 pcg LAB HEMETOLOGY METHOD 08/18[facility]2024 [facility] MCHC 32.0 32.0 - 37.0 g/dL LAB HEMETOLOGY METHOD 08/18/2024 10:33 AM EDT [facility] RDW 14.1 11.0 - 15.0 % LAB HEMETOLOGY METHOD 08/18/2024 10:33 AM EDT [facility] Platelets 307 130 - 400 K/mcL LAB HEMETOLOGY METHOD 08/18/2024 10:33 AM EDT [facility] MPV 10.2 7.0 - 11.0 FL LAB HEMETOLOGY METHOD 08/18/2024 10:33 AM EDT [facility] NRBC 0.0 <1.0 % LAB HEMETOLOGY METHOD 08/18/2024 10:33 AM EDT [facility] NRBC Absolute 0.00 <0.10 K/mcL LAB HEMETOLOGY METHOD 08/18/2024 10:33 AM EDT [facility] Blood Venous blood specimen / Unknown Venipuncture / Unknown 08/18/2024 5:33 AM EDT 08/18/2024 9:26 AM EDT us Leslie Garrison MD LAB BLOOD ORDERABLES Final Resul t [facility] [address] [place] [address], documented in this encounter Visit Diagnoses Diagnosis Unspecified atrial fibrillation (CMS/HCC V24, CMS/HCC V28) documented in this encounter Care Teams Welding Machine Assembler Relationship Specialty Start Date End Date Ceasar Burton MD [address] [place] [id number] PCP - General Internal Medicine 05/08/24 documented as of this encounter
--- OUTSIDE RECORDS SUMMARY | 2025-01-01 17:01 | XMS_ITS | Encounter Summary ---
Author Organization [facility] Address [address] [place] [address] Care Team Providers Care Elementary School Teacher'S Aide Name Role Phone Ceasar Burton MD Primary Care Provider +1- [phone] Encounter Details Date Type Department Care Team (Late st Contact Info) Description 10/05/2024 Lab Requisition [facility] - Main Lab [address] [facility] [place] [address] Leslie Garrison MD [address] [place] [address] Unspecified atrial fibrillation (CMS/HCC V24, CMS/HCC V28) [...] of Assessment Author No 09/26/2024 3:37 PM Winter RN documented as of this encounter Mental Status * Because of a physical, mental, or emotional condition, do you have serious difficulty concentrating, remembering, or making decisions? (5 years old or older) Answer Entry Date Author No 09/26/2024 3:37 PM EDLaughlin RN documented in this encounter Plan of Treatment Not on file documented as of this encounter Visit Diagnoses Diagnosis Unspecified atrial fibrillation (CMS/HCC V24, CMS/HCC V28) documented in this encounter Care Teams Elementary School Teacher'S Aide Relationship Specialty Start Date End Date Ceasar Burton MD [address] [place] [address] PCP - General Internal Medicine 05/08/24 documented as of this encounter
--- OUTSIDE RECORDS SUMMARY | 2025-01-01 17:01 | XMS_ITS | Encounter Summary ---
Author Organization [facility] Address [address] [place] [address] Care Team Providers Care Flight Communications Operator Name Role Phone Ceasar Burton MD Primary Care Provider +1- [phone] Encounter Details Date Type Department Care Team (Late st Contact Info) Description 07/21/2024 Lab Requisition [facility] - Main Lab [address] [facility] [place] [address] Beata Montelongo PA [address] [facility] [address] [facility] [place] [address] Type 2 diabetes mellitus without complications (CMS/HCC V24, CMS/[facility] V28) Social History Tobacco Use Types Packs/Day [...] Associated Diagnosis Comments COMPLETE BLOOD COUNT Routine 07/21/2024 8:02 AM EDT Type 2 diabetes mellitus without complications (CMS/HCC V24, CMS/HCC V28) THYROID STIMULATING HORMONE Routine 07/21/2024 8:02 AM EDT Type 2 diabetes mellitus without complications (CMS/HCC V24, CMS/HCC V28) HEMOGLOBIN A1C Routine 07/21/2024 8:02 AM EDT Type 2 diabetes mellitus without complications (CMS/HCC V24, CMS/HCC V28) FOLATE Routine 07/21/2024 8:02 AM EDT Type 2 diabetes mellitus without complications [place] [place] [facility] [place]28) BASIC METABOLIC PANEL Routine 07/21/2024 8:02 AM EDT Type 2 diabetes mellitus without complications ([facility] [place], [facility] [place]28) documented in this encounter Results * Hemoglobin A1c (07/21/2024 8:02 AM EDT) [facility] Hemoglobin A1C 5.3 <6.5 % LAB CHEMISTRY METHOD 07/21/2024 2:05 PM EDT [facility] Mean Bld Glu Estim. 105 mg/dL LAB CHEMISTRY METHOD 07/21/2024 2:05 PM EDT [facility] Blood Venous blood specimen / Unknown Venipuncture / Unknown 07/21/2024 8:02 AM EDT 07/21/2024 9:55 AM EDT us Beata HAWKINS LAB BLOOD ORDERABLES Final Resu lt Performing Organization Address City/[facility]/ZIP Co de Phone Number [facility] [address] [place] [address], [place] [phone] * Folate (07/21/2024 8:02 AM EDT) [facility] Folate 5.1 2.8 - 17.0 ng/ml LAB CHEMISTRY METHOD 07/21/2024 11:05 AM EDT [facility] Blood Venous blood specimen / Unknown Venipuncture / Unknown 07/21/2024 8:02 AM EDT 07/21/2024 9:55 AM EDT us Beata HAWKINS LAB BLOOD ORDERABLES Final Resu lt [facility] [address] [place] [address], [place] [phone] * Thyroid stimulating hormone (07/21/2024 8:02 AM EDT) Pathologist [facility] TSH 3.05 0.40 - 4.00 mcIU/mL LAB CHEMISTRY METHOD 07/21/2024 11:38 AM EDT [facility] Blood Venous blood specimen / Unknown Venipuncture / Unknown 07/21/2024 8:02 AM EDT 07/21/2024 9:55 AM EDT us Beata HAWKINS LAB BLOOD ORDERABLES Final Resu lt [facility] [address] [place] [address], [place] [phone] * Basic metabolic panel (07/21/2024 8:02 AM EDT) [facility] Sodium 135 133 - 145 mmol/L LAB CHEMISTRY METHOD 07/21/2024 10:54 AM [facility] Potassium 4.2 3.5 - 5.5 mmol/L LAB CHEMISTRY METHOD 07/21/2024 10:54 AM [facility] Chloride 101 96 - 110 mmol/L LAB CHEMISTRY METHOD 07/21/2024 10:54 AM [facility] CO2 29 21 - 32 mmol/L LAB CHEMISTRY METHOD 07/21/2024 10:54 AM [facility] Anion Gap 5 3 - 11 LAB CHEMISTRY METHOD 07/21/2024 10:54 AM [facility] Glucose 79 70 - 100 mg/dL LAB CHEMISTRY METHOD 07/21/2024 10:54 AM [facility] BUN 12 5 - 25 mg/dL LAB CHEMISTRY METHOD 07/21/2024 10:54 AM [facility] Creatinine 0.67 0.50 - 1.10 mg/dL LAB CHEMISTRY METHOD 07/21/2024 10:54 AM EDT [facility] eGFR 94 >=60 mL/min/1. 73m2 LAB CHEMISTRY METHOD 07/21/2024 10:54 AM EDT [facility] Comment:Calculation based on the Chronic Kidney Disease Epidemiology Collaboration (CKD-EPI) equation refit without adjustment for race. BUN/Creatinine Ratio 17.9 LAB CHEMISTRY METHOD 07/21/2024 10:54 AM EDT [facility] Calcium 8.7 8.5 - 10.5 mg/dL LAB CHEMISTRY METHOD 07/21/2024 10:54 AM T [facility] Blood Venous blood specimen / Unknown Venipuncture / Unknown 07/21/2024 8:02 AM EDT 07/21/2024 9:55 AM EDT us Beata HAWKINS LAB BLOOD ORDERABLES Final Resu lt [facility] [address] [place] [address], [place] [phone] * (ABNORMAL) Complete blood count (07/21/2024 8:02 AM EDT) WBC 5.4 4.8 - 10.8 K/mcL LAB HEMETOLOGY METHOD 07/21/2024 10:36 AM T [facility] RBC 4.00 3.80 - 4.80 M/mcL LAB HEMETOLOGY METHOD 07/21/2024 10:36 AM EDT [facility] Hemoglobin 11.7 11.5 - 16.0 g/dL LAB HEMETOLOGY METHOD 07/21/2024 10:36 AM EDT [facility] Hematocrit 35.9 35.0 - 47.0 % LAB HEMETOLOGY METHOD 07/21/2024 10:36 AM T [facility] MCV 90.9 79.0 - 98.0 FL LAB HEMETOLOGY METHOD 07/21/2024 10:36 AM EDT [facility] MCH 29.6 27.0 - 32.0 pcg LAB HEMETOLOGY METHOD 07/21/2024 10:36 AM EDT [facility] MCHC 32.6 32.0 - 37.0 g/dL LAB HEMETOLOGY METHOD 07/21/2024 10:36 AM T [facility] RDW 15.1(H) 11.0 - 15.0 % LAB HEMETOLOGY METHOD 07/21/2024 10:36 AM EDT [facility] Platelets 281 130 - 400 K/mcL LAB HEMETOLOGY METHOD 07/21/2024 10:36 AM EDT [facility] MPV 9.4 7.0 - 11.0 FL LAB HEMETOLOGY METHOD 07/21/2024 10:36 AM EDT [facility] NRBC 0.0 <1.0 % LAB HEMETOLOGY METHOD 07/21/2024 10:36 AM EDT [facility] NRBC Absolute 0.00 <0.10 K/mcL LAB HEMETOLOGY METHOD 07/21/2024 10:36 AM T [facility] Blood Venous blood specimen / Unknown Venipuncture / Unknown 07/21/2024 8:02 AM EDT 07/21/2024 9:55 AM EDT us Beata HAWKINS LAB BLOOD ORDERABLES Final Resu lt [facility] [address] [place] [address], documented in this encounter Visit Diagnoses Diagnosis Type 2 diabetes mellitus without complications (CMS/HCC V24, CMS/HCC V28) documented in this encounter Care Teams Flight Communications Operator Relationship Specialty Start Date End Date Ceasar Burton MD [address] [place] [address] PCP - General Internal Medicine 05/08/24 documented as of this encounter
--- OUTSIDE RECORDS SUMMARY | 2025-01-01 17:01 | XMS_ITS | Clinical Summary ---
Author Organization [address] Address [address] [place] [phone] Phone Care Team Providers Care Granulator Tender Name Role Phone Ceasar Burton MD Primary Care Provider +1- [phone] Allergies Active Allergy Reactions Criticality Noted Date Comments Penicillins 09/26/2024 Encounters Date Type Department Care Team Description 10/05/2024 Lab Requisition [facility] - Main Lab [address] [place] [address] Leslie Garrison MD Unspecified atrial fibrillation (CMS/HCC V24, CMS/HCC V28) from Last 3 Months Medical History Medical History Date Comments Atrial fibrillation, unspecified type (CMS/HCC V 24, CMS/HCC V28) Hypertension Social History Tobacco Use Types Packs/Day Years Used Date Smoking Tobacco: Former Cigarettes Tobacco Cessation:Counseling Given: Not Answered Comments Unknown Sex and Gender Information Value Date Recorded Sex Assigned at Not on file Legal Sex Female 2:35 AM EST Gender Identity Not on file Sexual Orientation Not on file Obstetrics History Last Filed Vital Signs Vital Sign Reading Time Taken Comments Blood Pressure 138/69 09/26/2024 9:17 PM EDT Pulse 86 09/26/2024 9:17 PM EDT Temperature 37.1 C (98.8 F) 09/26/2024 6:30 PM EDT Respiratory Rate 18 09/26/2024 9:17 PM EDT Oxygen Saturation 98% 09/26/2024 6:30 PM EDT Inhaled Oxygen Concentration - - Weight 104 kg (230 lb) 09/26/2024 3:36 PM EDT Height 170.2 cm (5' 7 ) 09/26/2024 3:36 PM EDT Body Mass Index 36.02 09/26/2024 3:36 PM EDT Plan of Treatment Health Maintenance Due Date Last Done Comments DTaP,Tdap,and Td Vaccines (1 - Tdap) 1972 Zoster Vaccines (1 of 2) 11/01/2003 Cholesterol Screening (Lipid Panel) 03/11/2022 Colorectal Cancer Screening: Colonoscopy 03/11/2022 Falls Risk Assessment 03/11/2022 Hepatitis C Screening 03/11/2022 Medicare Annual Wellness Visit 03/11/2022 Osteoporosis Screening (Bone Density Screening) 03/11/2022 Social Influencers of Health Screening 03/11/2022 Breast Cancer Screening 05/24/2023 05/24/19, 04/17/2019, 01/06/2018 Depression Screening 04/08/2024 COVID-19 Vaccine ( season) 2024 03/11/2021, 08/03/2020, 07/06/2020 Influenza Vaccine (#1) 2024 , 01/10/2021, 12/30/2019, Additional history exists Hypertension/CHF/CAD Annual BMP Blood Test 09/29/2025 09/29/2024, 09/26/2024, 09/22/2024, Additional history exists RSV Immunization Adult Patients (1 - 1-dose 75+ series) 2028 Pneumococcal Vaccine: 50+ Years Completed 06/02/2019, 05/14/2017 HIB Vaccines Aged Out No longer eligi ble based on patient's age to complete this topic HPV Vaccines Aged Out No longer eligi ble based on patient's age to complete this topic Hepatitis A Vaccines Aged Out No long er eligible based on patient's age to complete this topic Hepatitis B Vaccines Aged Out No long er eligible based on patient's age to complete this topic IPV Vaccines Aged Out No longer eligi ble based on patient's age to complete this topic MMR Vaccines Aged Out No longer eligi ble based on patient's age to complete this topic Meningococcal ACWY Vaccine Aged Out N o longer eligible based on patient's age to complete this topic Meningococcal B Vaccine Aged Out No l onger eligible based on patient's age to complete this topic RSV Immunization Patients Under 20 months Aged Out No longer eligible based on patient's age to complete this topic Varicella Vaccines Aged Out No longer eligible based on patient's age to complete this topic Procedures Procedure Name Priority Date/Time Associated Diagnosis Comments BASIC METABOLIC PANEL Routine 09/29/2024 5:24 AM EDT Unspecified atrial fibrillation (CMS/HCC V24, CMS/HCC V28) DOMINIC SCREENING DIGITAL Routine 05/24/2021 4:38 PM EST Encounter for screening mammogram for malignant neoplasm of breast from Last 3 Months or Most Recently Relevant to Health Maintenance Results * (ABNORMAL) Basic metabolic panel (09/29/2024 5:24 AM EDT) Sodium 139 133 - 145 mmol/L LAB CHEMISTRY METHOD 09/29/2024 9:39 AM [facility] Potassium 3.7 3.5 - 5.5 mmol/L LAB CHEMISTRY METHOD 09/29/2024 9:39 AM [facility] Chloride 105 96 - 110 mmol/L LAB CHEMISTRY METHOD 09/29/2024 9:39 AM [facility] CO2 26 21 - 32 mmol/L LAB CHEMISTRY METHOD 09/29/2024 9:39 AM [facility] Anion Gap 8 3 - 11 LAB CHEMISTRY METHOD 09/29/2024 9:39 AM [facility] Glucose 70 70 - 100 mg/dL LAB CHEMISTRY METHOD 09/29/2024 9:39 AM [facility] BUN 10 5 - 25 mg/dL LAB CHEMISTRY METHOD 09/29/2024 9:39 AM [facility] Creatinine 0.63 0.50 - 1.10 mg/dL LAB CHEMISTRY METHOD 09/29/2024 9:39 AM [facility] eGFR 96 >=60 mL/min/1. 73m2 LAB CHEMISTRY METHOD 09/29/2024 9:39 AM [facility] Comment:Calculation based on the Chronic Kidney Disease Epidemiology Collaboration (CKD-EPI) equation refit without adjustment for race. BUN/Creatinine Ratio 15.9 LAB CHEMISTRY METHOD 09/29/2024 9:39 AM EDT [facility] Calcium 8.4(L) 8.5 - 10.5 mg/dL LAB CHEMISTRY METHOD 09/29/2024 9:39 AM EDT [facility] Blood Venous blood specimen / Unknown Venipuncture / Unknown 09/29/2024 5:24 AM EDT 09/29/2024 8:11 AM EDT us Leslie Garrison MD LAB BLOOD ORDERABLES Final Resul t [facility] [address] [place] [address], * DOMINIC SCREENING DIGITAL (05/24/2021 4:38 PM EST) Anatomical Region Laterality Modality Mammography 05/24/2021 10:4 2 AM EST Narrative 05/24/2021 4:[address] [facility] Diagnostic Imaging Department [address] [place] [address] Patient: JONO GIANG/Age/Sex: 1955 - 65 - F Unit#: [id number] Location/Status: SPDIMAM/REG CLI Mnemonic/Ordering Site: DIGSC/SPMAM Ordering Physician: TRISTIN RAY MD [facility] Screening Digital - 05/24/21 - 1609 EXAM: [facility] Screening Digital EXAM DATE AND TIME: 05/24/2021 4:09 PM HISTORY: Screening. COMPARISON: 03/08/20, 04/17/19, 01/06/18, 01/04/17, 02/13/14 TECHNIQUE: CC and MLO views of both breasts were obtained using full field digital mammography. Bilateral digital breast tomosynthesis was performed in the MLO projection. Computer aided detection with the [employer] was employed. TISSUE DENSITY: a. The breasts are almost entirely fatty. FINDINGS: No suspicious masses, grouped microcalcifications, or areas of architectural distortion are seen. Vascular calcification is present. The skin is unremarkable. IMPRESSION: Stable mammographic appearance of the breasts. No evidence of malignancy is seen. A negative mammogram in the presence of a clinically suspicious palpable abnormality does not preclude the possibility of malignancy or alter the indications for biopsy. BI-RADS: Category 2: Benign RECOMMENDATION(S): 1: Routine screening mammogram BILATERAL in 1 year. 19618, 93097 3342F, 7025F Dictating Physician: SHELLY VAZ MD Electronically Signed by: SHELLY VAZ MD Dic Date/Time: 05/24/21 1637 Sign date/Time: 05/24/21 1638 Procedure Note Shelly Vaz MD - 03/28/2022 [facility] Diagnostic Imaging Department [address] [place] [address] Patient: TONNYJONO Ayala/Age/Sex: 1955 - 65 - F Unit#: [id number] [facility] Ordering Physician: TRISTIN RAY MD [facility] Screening Digital - 05/24/21 - 1609 EXAM: [facility] Screening Digital EXAM DATE AND TIME: 05/24/2021 4:09 PM HISTORY: Screening. COMPARISON: 03/08/20, 04/17/19, 01/06/18, 01/04/17, 02/13/14 TECHNIQUE: CC and MLO views of both breasts were obtained using fullfield digital mammography. Bilateral digital breast tomosynthesis was performedin the MLO projection. Computer aided detection with the [facility] [employer] employed. TISSUE DENSITY: a. The breasts are almost entirely fatty. FINDINGS: No suspicious masses, grouped microcalcifications, or areas ofarchitectural distortion are seen. Vascular calcification is present. The skin is unremarkable. IMPRESSION: Stable mammographic appearance of the breasts. No evidence of malignancyis seen. A negative mammogram in the presence of a clinically suspicious palpable abnormality does not preclude the possibility of malignancy or alter the indications for biopsy. BI-RADS: Category 2: Benign RECOMMENDATION(S): 1: Routine screening mammogram BILATERAL in 1 year. 78345, [address]0417 3342F, 7025F Dictating Physician: SHELLY VAZ MD Electronically Signed by: SHELLY VAZ MD Dic Date/Time: 05/24/21 1637 Sign date/Time: 05/24/21 1638 us Tristin Ray MD IMG BI PROCEDURES Final Res ult from Last 3 Months or Most Recently Relevant to Health Maintenance [place] [place] [id number] MEDICARE [facility] Advance Directives Documents on File Type Date Recorded Patient Precast Molder Expl anation Advance Directives and Livin g Will 09/29/2024 3:58 PM MOLST Care Teams Granulator Tender Relationship Specialty Start Date End Date Ceasar Burton MD [address] [place] [address] PCP - General Internal Medicine 05/08/24
--- OUTSIDE RECORDS SUMMARY | 2025-01-01 17:01 | XMS_ITS | Encounter Summary ---
Author Organization [facility] Address [address] [place] [address] Care Team Providers Care Side Seam Tender Name Role Phone Ceasar Burton MD Primary Care Provider +1- [phone] Encounter Details Date Type Department Care Team (Late st Contact Info) Description 09/21/[address] [facility] - Main Lab [address] [facility] [place] [address] Leslie Garrison MD [address] [place] [address] Unspecified atrial fibrillation (CMS/HCC V24, CMS/HCC V28) [...] Associated Diagnosis Comments COMPLETE BLOOD COUNT Routine 09/22/2024 7:04 AM EDT Unspecified atrial fibrillation (CMS/HCC V24, CMS/HCC V28) BASIC METABOLIC PANEL Routine 09/22/2024 7:04 AM EDT Unspecified atrial fibrillation (CMS/HCC V24, CMS/HCC V28) documented in this encounter Results * Basic metabolic panel (09/22/2024 7:04 AM EDT) Sodium 140 133 - 145 mmol/L LAB CHEMISTRY METHOD 09/22/2024 9:58 AM [facility] Potassium 4.3 3.5 - 5.5 mmol/L LAB CHEMISTRY METHOD 09/22/2024 9:58 AM [facility] Chloride 106 96 - 110 mmol/L LAB CHEMISTRY METHOD 09/22/2024 9:58 AM [facility] CO2 28 21 - 32 mmol/L LAB CHEMISTRY METHOD 09/22/2024 9:58 AM [facility] Anion Gap 6 3 - 11 LAB CHEMISTRY METHOD 09/22/2024 9:58 AM [facility] Glucose 78 70 - 100 mg/dL LAB CHEMISTRY METHOD 09/22/2024 9:58 AM [facility] BUN 13 5 - 25 mg/dL LAB CHEMISTRY METHOD 09/22/2024 9:58 AM [facility] Creatinine 0.72 0.50 - 1.10 mg/dL LAB CHEMISTRY METHOD 09/22/2024 9:58 AM [facility] eGFR 90 >=60 mL/min/1. 73m2 LAB CHEMISTRY METHOD 09/22/2024 9:58 AM [facility] Comment:Calculation based on the Chronic Kidney Disease Epidemiology Collaboration (CKD-EPI) equation refit without adjustment for race. BUN/Creatinine Ratio 18.1 LAB CHEMISTRY METHOD 09/22/2024 9:58 AM [facility] Calcium 8.7 8.5 - 10.5 mg/dL LAB CHEMISTRY METHOD 09/22/2024 9:58 AM [facility] Blood Venous blood specimen / Unknown Venipuncture / Unknown 09/22/2024 7:04 AM EDT 09/22/2024 8:29 AM EDT us Leslie Garrison MD LAB BLOOD ORDERABLES Final Resul t [facility] [address] [place] [address], * (ABNORMAL) Complete blood count (09/22/2024 7:04 AM EDT) [facility] Signature WBC 4.5(L) 4.8 - 10.8 K/mcL LAB HEMETOLOGY METHOD 09/22/2024 8:58 AM EDT [facility] RBC 4.30 3.80 - 4.80 M/mcL LAB HEMETOLOGY METHOD 09/22/2024 8:58 AM EDT [facility] Hemoglobin 11.4(L) 11.5 - 16.0 g/dL LAB HEMETOLOGY METHOD 09/22/2024 8:58 AM EDT [facility] Hematocrit 36.2 35.0 - 47.0 % LAB HEMETOLOGY METHOD 09/22/2024 8:58 AM EDT [facility] MCV 84.4 79.0 - 98.0 FL LAB HEMETOLOGY METHOD 09/22/2024 8:58 AM EDT [facility] MCH 26.6(L) 27.0 - 32.0 pcg LAB HEMETOLOGY METHOD 09/22/2024 8:58 AM EDT [facility] MCHC 31.5(L) 32.0 - 37.0 g/dL LAB HEMETOLOGY METHOD 09/22/2024 8:58 AM EDT [facility] RDW 14.0 11.0 - 15.0 % LAB HEMETOLOGY METHOD 09/22/2024 8:58 AM EDT [facility] Platelets 300 130 - 400 K/mcL LAB HEMETOLOGY METHOD 09/22/2024 8:58 AM EDT [facility] MPV 10.5 7.0 - 11.0 FL LAB HEMETOLOGY METHOD 09/22/2024 8:58 AM EDT [facility] NRBC 0.0 <1.0 % LAB HEMETOLOGY METHOD 09/22/2024 8:58 AM EDT [facility] NRBC Absolute 0.00 <0.10 K/mcL LAB HEMETOLOGY METHOD 09/22/2024 8:58 AM EDT [facility] Blood Venous blood specimen / Unknown Venipuncture / Unknown 09/22/2024 7:04 AM EDT 09/22/2024 8:29 AM EDT us Leslie Garrison MD LAB BLOOD ORDERABLES Final Resul t [facility] [address] [place] [address], documented in this encounter Visit Diagnoses Diagnosis Unspecified atrial fibrillation (CMS/HCC V24, CMS/HCC V28) documented in this encounter Care Teams Side Seam Tender Relationship Specialty Start Date End Date Ceasar Burton MD [address] [place] [address] PCP - General Internal Medicine 05/08/24 documented as of this encounter
--- OUTSIDE RECORDS SUMMARY | 2025-01-01 17:01 | XMS_ITS | Encounter Summary ---
Author Organization [facility] Address [address] [place] [address] Care Team Providers Care Head Bucker Name Role Phone Ceasar Burton MD Primary Care Provider +1- [phone] Encounter Details Date Type Department Care Team (Late st Contact Info) Description 09/07/2024 Lab Requisition [facility] - Main Lab [address] [facility] [place] [address] Leslie Garrison MD [address] [place] [address] Unspecified atrial fibrillation (CMS/HCC V24, CMS/HCC V28) [...] Associated Diagnosis Comments COMPLETE BLOOD COUNT Routine 09/08/2024 5:57 AM EDT Unspecified atrial fibrillation (CMS/HCC V24, CMS/HCC V28) BASIC METABOLIC PANEL Routine 09/08/2024 5:57 AM EDT Unspecified atrial fibrillation (CMS/HCC V24, CMS/HCC V28) documented in this encounter Results * Basic metabolic panel (09/08/2024 5:57 AM EDT) Sodium 138 133 - 145 mmol/L LAB CHEMISTRY METHOD 09/08/2024 8:42 AM [facility] Potassium 4.2 3.5 - 5.5 mmol/L LAB CHEMISTRY METHOD 09/08/2024 8:42 AM [facility] Chloride 106 96 - 110 mmol/L LAB CHEMISTRY METHOD 09/08/2024 8:42 AM [facility] CO2 27 21 - 32 mmol/L LAB CHEMISTRY METHOD 09/08/2024 8:42 AM [facility] Anion Gap 5 3 - 11 LAB CHEMISTRY METHOD 09/08/2024 8:42 AM [facility] Glucose 75 70 - 100 mg/dL LAB CHEMISTRY METHOD 09/08/2024 8:42 AM [facility] BUN 16 5 - 25 mg/dL LAB CHEMISTRY METHOD 09/08/2024 8:42 AM [facility] Creatinine 0.71 0.50 - 1.10 mg/dL LAB CHEMISTRY METHOD 09/08/2024 8:42 AM [facility] eGFR 92 >=60 mL/min/1. 73m2 LAB CHEMISTRY METHOD 09/08/2024 8:42 AM [facility] Comment:Calculation based on the Chronic Kidney Disease Epidemiology Collaboration (CKD-EPI) equation refit without adjustment for race. BUN/Creatinine Ratio 22.5 LAB CHEMISTRY METHOD 09/08/2024 8:42 AM [facility] Calcium 9.1 8.5 - 10.5 mg/dL LAB CHEMISTRY METHOD 09/08/2024 8:42 AM [facility] Blood Venous blood specimen / Unknown Venipuncture / Unknown 09/08/2024 5:57 AM EDT 09/08/2024 8:00 AM EDT us Leslie Garrison MD LAB BLOOD ORDERABLES Final Resul t [facility] [address] [place] [address], * (ABNORMAL) Complete blood count (09/08/2024 5:57 AM EDT) [facility] Signature WBC 4.6(L) 4.8 - 10.8 K/mcL LAB HEMETOLOGY METHOD 09/08/2024 8:51 AM EDT [facility] RBC 4.20 3.80 - 4.80 M/mcL LAB HEMETOLOGY METHOD 09/08/2024 8:51 AM EDT [facility] Hemoglobin 11.4(L) 11.5 - 16.0 g/dL LAB HEMETOLOGY METHOD 09/08/2024 8:51 AM EDT [facility] Hematocrit 37.0 35.0 - 47.0 % LAB HEMETOLOGY METHOD 09/08/2024 8:51 AM EDT [facility] MCV 88.7 79.0 - 98.0 FL LAB HEMETOLOGY METHOD 09/08/2024 8:51 AM EDT [facility] MCH 27.3 27.0 - 32.0 pcg LAB HEMETOLOGY [facility] MCHC 30.8(L) 32.0 - 37.0 g/dL LAB HEMETOLOGY METHOD 09/08/2024 8:51 AM EDT [facility] RDW 14.0 11.0 - 15.0 % LAB HEMETOLOGY METHOD 09/08/2024 8:51 AM EDT [facility] Platelets 311 130 - 400 K/mcL LAB HEMETOLOGY METHOD 09/08/2024 8:51 AM EDT [facility] MPV 10.5 7.0 - 11.0 FL LAB HEMETOLOGY METHOD 09/08/2024 8:51 AM EDT [facility] NRBC 0.0 <1.0 % LAB HEMETOLOGY METHOD 09/08/2024 8:51 AM EDT [facility] NRBC Absolute 0.00 <0.10 K/mcL LAB HEMETOLOGY METHOD 09/08/2024 8:51 AM EDT [facility] Blood Venous blood specimen / Unknown Venipuncture / Unknown 09/08/2024 5:57 AM EDT 09/08/2024 8:00 AM EDT us Leslie Garrison MD LAB BLOOD ORDERABLES Final Resul t [facility] [address] [place] [address], documented in this encounter Visit Diagnoses Diagnosis Unspecified atrial fibrillation (CMS/HCC V24, CMS/HCC V28) documented in this encounter Care Teams Head Bucker Relationship Specialty Start Date End Date Ceasar Burton MD [address] [place] [address] PCP - General Internal Medicine 05/08/24 documented as of this encounter
--- OUTSIDE RECORDS SUMMARY | 2025-01-01 17:01 | XMS_ITS | Encounter Summary ---
Author Organization [facility] Address [address] [place] [address] Care Team Providers Care Calker Name Role Phone Ceasar Burton MD Primary Care Provider +1- [phone] Encounter Details Date Type Department Care Team (Late st Contact Info) Description 05/24/2024 Lab Requisition [facility] - Main Lab [address] [facility] [place] [address] Ceasar Burton MD [address] [place] [address] Essential (primary) hypertension; Anemia, unspecified Social History Tobacco Use Types Packs/Day [...] as of this encounter Visit Diagnoses Diagnosis Essential (primary) hypertension Unspecified essential hypertension Anemia, unspecified documented in this encounter Care Teams Calker Relationship Specialty Start Date End Date Ceasar Burton MD [address] [place] [address] PCP - General Internal Medicine 05/08/24 documented as of this encounter
--- OUTSIDE RECORDS SUMMARY | 2025-01-01 17:01 | XMS_ITS | Encounter Summary ---
Author Organization [facility] [address] Address [address] [place] [address] Care Team Providers Care Foundry Patternmaker Name Role Phone Ceasar Burton MD Primary Care Provider +1- [phone] Encounter Details Date Type Department Care Team (Late st Contact Info) Description 08/28/[address] [facility] [address] [facility] [place] [address] Leslie Garrison MD [address] [place] [address] Unspecified atrial fibrillation (CMS/HCC V24, CMS/HCC V28) [...] Procedure Name Priority Date/Time Associated Diagnosis Comments PROTHROMBIN TIME WITH INR Routine 08/28/2024 6:39 AM EDT Unspecified atrial fibrillation (CMS/HCC V24, CMS/HCC V28) documented in this encounter Results * (ABNORMAL) Prothrombin time with INR (08/28/2024 6:39 AM EDT) Protime 14.7(H) 10.6 - 13.9 sec LAB COAGULATION METHOD 08/28/2024 12:10 PM EDT [facility] INR 1.2 LAB COAGULATION METHOD 08/28/2024 12:10 PM EDT [facility] Blood Venous blood specimen / Unknown Venipuncture / Unknown 08/28/2024 6:39 AM EDT 08/28/2024 11:19 AM EDT us Leslie Garrison MD LAB BLOOD ORDERABLES Final Resul t [facility] [address] [place] [address], documented in this encounter Visit Diagnoses Diagnosis Unspecified atrial fibrillation (CMS/HCC V24, CMS/HCC V28) documented in this encounter Care Teams Foundry Patternmaker Relationship Specialty Start Date End Date Ceasar Burton MD [address] [place] [address] PCP - General Internal Medicine 05/08/24 documented as of this encounter
--- OUTSIDE RECORDS SUMMARY | 2025-01-01 17:01 | XMS_ITS | Patient Health Record ---
Author Organization [facility] Address [address] [place] [address] Care Team Providers Care Supervisor Paper Coating Name Role Phone Duncan AGUIRRE, Tristin Primary Care Provider Ariel Rodriguez [phone] Allergies Allergen (clinical drug ingredient) Drug/Non Drug Allergy documented on EMR Reaction Allergy Type Onset Date Status Penicillin Unknown Drug Allergy Active Reason For Referral No Information Medications Medication SIG (Take, Route, Fr equency, Duration) Notes Start Date End Date Status Estroven Active Lexapro Active Metoprolol Tartrate Active Multivitamin Active Wellbutrin 150 Activ e Lisinopril Active Problems Problem Type SNOMED Code ICD Code Onset Dates Problem Status W/U Status Risk Notes Problem 545639434 Encounter for screening for malignant neoplasm of colon (Z12.11) Active confirmed Problem 307828214 Hx of adenomatous colonic polyps (Z86.010) Active confirmed Problem 429986543496501 Pre-procedural examination (Z01.818) Active confirmed Plan Of Treatment Pending Test Test Name Order Date IRON + IBC (FE) 12/19/2012 FERRITIN 12/19/2012 CBC w DIFF 12/19/2012 CELIAC PANEL #10 12/19/2012 ENDOMYSIAL IGA 12/19/2012 TRANSGLUTAMINASE AB IGA 12/19/2012 TRANSGLUTAMINASE AB IGG 12/19/2012 Future Test Test Name Order Date COLONOSCOPY 01/01/2018 Insurance Providers Payer Name Payer Address Payer Phone Subscriber Number Group Number Insured Name Patient Relationship to Insured Coverage Start Date Coverage End Date [employer] [address] [place] [address] [id number] JONO LANCASTER Self - patient is the insured Medical (General) History Medical History History ICD Code Colonoscopy 07-21-2010-2 smal l tubular adenomas removed; she also had a negative colonoscopy by Dr. Crenshaw at [facility] in approximate 2004. UGI bleed in 04/2010 with an anastomotic ulcer seen on EGD Gastric bypass for weight loss in 2003 Depression HTN Denies MD,DM,CVA,Lung disease,renal dise ase Surgical History Surgery Date(Month/Year) Gastric bypass surgery --laparoscopic by Dr. Easton in 2003 Cholecystectomy Abdominal wall hernia in relation to # 1 Bilateral knee replacements in 2013
--- OUTSIDE RECORDS SUMMARY | 2025-01-01 17:01 | XMS_ITS | Encounter Summary ---
Author Organization [facility] Address [address] [place] [address] Care Team Providers Care Safe And Vault Installer Name Role Phone Ceasar Burton MD Primary Care Provider +1- [phone] Encounter Details Date Type Department Care Team (Late st Contact Info) Description 08/21/2024 Lab Requisition [facility] - Main Lab [address] [facility] [place] [address] Leslie Garrison MD [address] [place] [address] Repeated falls; Bilateral primary osteoarthritis of hip; Weakness; Unsteadiness on feet; History of falling Social History Tobacco Use Types Packs/Day Years [...] Procedure Name Priority Date/Time Associated Diagnosis Comments SEDIMENTATION RATE Routine 08/21/2024 6: 18 AM EDT Repeated falls Bilateral primary osteoarthritis of hip Weakness Unsteadiness on feet History of falling C-REACTIVE PROTEIN Routine 08/21/2024 6: 18 AM EDT Repeated falls Bilateral primary osteoarthritis of hip Weakness Unsteadiness on feet History of falling documented in this encounter Results * (ABNORMAL) C-reactive protein (08/21/2024 6:18 AM EDT) Pathologist [facility] C-Reactive Protein 0.74(H) <=0.50 mg/dL LAB CHEMISTRY METHOD 08/21/2024 9:33 AM EDT [facility] Blood Venous blood specimen / Unknown Venipuncture / Unknown 08/21/2024 6:18 AM EDT 08/21/2024 8:18 AM EDT us Leslie Garrison MD LAB BLOOD ORDERABLES Final Resul t Performing Organization Address [facility]/ZIP Co de Phone Number [facility] [address] [place] [address], [place] [phone] * (ABNORMAL) Sedimentation rate (08/21/2024 6:18 AM EDT) [facility] Sed Rate 36(H) 0 - 30 mm/hr LAB HEMETOLOGY METHOD 08/21/2024 8:44 AM EDT [facility] Blood Venous blood specimen / Unknown Venipuncture / Unknown 08/21/2024 6:18 AM EDT 08/21/2024 8:18 AM EDT us Leslie Garrison MD LAB BLOOD ORDERABLES Final Resul t Performing Organization Address [facility] Co de Phone Number [facility] [address] [place] [address], [place] [phone] documented in this encounter Visit Diagnoses Diagnosis Repeated falls Bilateral primary osteoarthritis of hip Weakness Other malaise and fatigue Unsteadiness on feet History of falling documented in this encounter Care Teams Safe And Vault Installer Relationship Specialty Start Date End Date Ceasar Burton MD [address] [place] [id number] PCP - General Internal Medicine 05/08/24 documented as of this encounter
--- OUTSIDE RECORDS SUMMARY | 2025-01-01 17:01 | XMS_ITS | Encounter Summary ---
Author Organization [facility] Address [address] [place] [address] Care Team Providers Care Job Development Specialist Name Role Phone Ceasar Burton MD Primary Care Provider +1- [phone] Encounter Details Date Type Department Care Team (Late st Contact Info) Description 08/03/2024 Lab Requisition [facility] - Main Lab [address] [facility] [place] [address] Leslie Garrison MD [address] [place] [address] Unspecified atrial fibrillation (CMS/HCC V24, CMS/HCC V28) [...] Associated Diagnosis Comments COMPLETE BLOOD COUNT Routine 08/04/2024 6:37 AM EDT Unspecified atrial fibrillation (CMS/HCC V24, CMS/HCC V28) BASIC METABOLIC PANEL Routine 08/04/2024 6:37 AM EDT Unspecified atrial fibrillation (CMS/HCC V24, CMS/HCC V28) documented in this encounter Results * (ABNORMAL) Basic metabolic panel (08/04/2024 6:37 AM EDT) Sodium 141 133 - 145 mmol/L LAB CHEMISTRY METHOD 08/04/2024 10:36 AM [facility] Potassium 4.2 3.5 - 5.5 mmol/L LAB CHEMISTRY METHOD 08/04/2024 10:36 AM [facility] Chloride 107 96 - 110 mmol/L LAB CHEMISTRY METHOD 08/04/2024 10:36 AM [facility] CO2 29 21 - 32 mmol/L LAB CHEMISTRY METHOD 08/04/2024 10:36 AM [facility] Anion Gap 5 3 - 11 LAB CHEMISTRY METHOD 08/04/2024 10:36 AM [facility] Glucose 70 70 - 100 mg/dL LAB CHEMISTRY METHOD 08/04/2024 10:36 AM [facility] BUN 12 5 - 25 mg/dL LAB CHEMISTRY METHOD 08/04/2024 10:36 AM [facility] Creatinine 0.61 0.50 - 1.10 mg/dL LAB CHEMISTRY METHOD 08/04/2024 10:36 AM [facility] eGFR 96 >=60 mL/min/1. 73m2 LAB CHEMISTRY METHOD 08/04/2024 10:36 AM [facility] Comment:Calculation based on the Chronic Kidney Disease Epidemiology Collaboration (CKD-EPI) equation refit without adjustment for race. BUN/Creatinine Ratio 19.7 LAB CHEMISTRY METHOD 08/04/2024 10:36 AM [facility] Calcium 8.4(L) 8.5 - 10.5 mg/dL LAB CHEMISTRY METHOD 08/04/2024 10:36 AM [facility] Blood Venous blood specimen / Unknown Venipuncture / Unknown 08/04/2024 6:37 AM EDT 08/04/2024 9:56 AM EDT Leslie Garrison MD LAB BLOOD ORDERABLES Final Resul t [facility] [address] [place] [address], * (ABNORMAL) Complete blood count (08/04/2024 6:37 AM EDT) WBC 4.6(L) 4.8 - 10.8 K/mcL LAB HEMETOLOGY METHOD 08/04/2024 10:07 AM EDT [facility] RBC 3.90 3.80 - 4.80 M/mcL LAB HEMETOLOGY METHOD 08/04/2024 10:07 AM EDT [facility] Hemoglobin 11.2(L) 11.5 - 16.0 g/dL LAB HEMETOLOGY METHOD 08/04[facility]2024 10[facility] Hematocrit 35.3 35.0 - 47.0 % LAB HEMETOLOGY METHOD 08/04/2024 10:07 AM EDT [facility] MCV 91.5 79.0 - 98.0 FL LAB HEMETOLOGY METHOD 08/04/2024 10:07 AM EDT [facility] MCH 29.0 27.0 - 32.0 pcg LAB HEMETOLOGY METHOD 08/04/2024 10:[facility] MCHC 31.7(L) 32.0 - 37.0 g/dL LAB HEMETOLOGY METHOD 08/04/2024 10:07 AM EDT [facility] RDW 14.8 11.0 - 15.0 % LAB HEMETOLOGY METHOD 08/04/2024 10:07 AM EDT [facility] Platelets 338 130 - 400 K/mcL LAB HEMETOLOGY METHOD 08/04/2024 10:07 AM EDT [facility] MPV 9.7 7.0 - 11.0 FL LAB HEMETOLOGY METHOD 08/04/2024 10:07 AM EDT [facility] NRBC 0.0 <1.0 % LAB HEMETOLOGY METHOD 08/04/2024 10:07 AM EDT [facility] NRBC Absolute 0.00 <0.10 K/mcL LAB HEMETOLOGY METHOD 08/04/2024 10:07 AM EDT [facility] Blood Venous blood specimen / Unknown Venipuncture / Unknown 08/04/2024 6:37 AM EDT 08/04/2024 9:56 AM EDT us Leslie Garrison MD LAB BLOOD ORDERABLES Final Resul t [facility] ([facility]) [facility] [address] [place] [address], documented in this encounter Visit Diagnoses Diagnosis Unspecified atrial fibrillation (CMS/HCC V24, CMS/HCC V28) documented in this encounter Care Teams Job Development Specialist Relationship Specialty Start Date End Date Ceasar Burton MD [address] [place] [id number] PCP - General Internal Medicine 05/08/24 documented as of this encounter
--- OUTSIDE RECORDS SUMMARY | 2025-01-01 17:01 | XMS_ITS | Encounter Summary ---
Author Organization [facility] Address [address] [place] [address] Care Team Providers Care Cold Food Packer Name Role Phone Ceasar Burton MD Primary Care Provider +1- [phone] Encounter Details Date Type Department Care Team (Late st Contact Info) Description 08/24/2024 Lab Requisition [facility] - Main Lab [address] [facility] [place] [address] Leslie Garrison MD [address] [place] [address] Unspecified atrial fibrillation (CMS/HCC V24, CMS/HCC V28) [...] Associated Diagnosis Comments COMPLETE BLOOD COUNT Routine 08/25/2024 6:42 AM EDT Unspecified atrial fibrillation (CMS/HCC V24, CMS/HCC V28) BASIC METABOLIC PANEL Routine 08/25/2024 6:42 AM EDT Unspecified atrial fibrillation (CMS/HCC V24, CMS/HCC V28) documented in this encounter Results * Basic metabolic panel (08/25/2024 6:42 AM EDT) Sodium 141 133 - 145 mmol/L LAB CHEMISTRY METHOD 08/25/2024 10:44 AM [facility] Potassium 4.3 3.5 - 5.5 mmol/L LAB CHEMISTRY METHOD 08/25/2024 10:44 AM [facility] Chloride 108 96 - 110 mmol/L LAB CHEMISTRY METHOD 08/25/2024 10:44 AM [facility] CO2 27 21 - 32 mmol/L LAB CHEMISTRY METHOD 08/25/2024 10:44 AM [facility] Anion Gap 6 3 - 11 LAB CHEMISTRY METHOD 08/25/2024 10:44 AM [facility] Glucose 70 70 - 100 mg/dL LAB CHEMISTRY METHOD 08/25/2024 10:44 AM [facility] BUN 13 5 - 25 mg/dL LAB CHEMISTRY METHOD 08/25/2024 10:44 AM [facility] Creatinine 0.71 0.50 - 1.10 mg/dL LAB CHEMISTRY METHOD 08/25/2024 10:44 AM [facility] eGFR 92 >=60 mL/min/1. 73m2 LAB CHEMISTRY METHOD 08/25/2024 10:44 AM [facility] Comment:Calculation based on the Chronic Kidney Disease Epidemiology Collaboration (CKD-EPI) equation refit without adjustment for race. BUN/Creatinine Ratio 18.3 LAB CHEMISTRY METHOD 08/25/2024 10:44 AM [facility] Calcium 8.5 8.5 - 10.5 mg/dL LAB CHEMISTRY METHOD 08/25/2024 10:44 AM [facility] Blood Venous blood specimen / Unknown Venipuncture / Unknown 08/25/2024 6:42 AM EDT 08/25/2024 9:45 AM EDT us Leslie Garrison MD LAB BLOOD ORDERABLES Final Resul t [facility] [address] [place] [address], * (ABNORMAL) Complete blood count (08/25/2024 6:42 AM EDT) WBC 4.3(L) 4.8 - 10.8 K/mcL LAB HEMETOLOGY METHOD 08/25/2024 10:02 AM EDT [facility] RBC 4.10 3.80 - 4.80 M/mcL LAB HEMETOLOGY METHOD 08/25/2024 10:02 AM EDT [facility] Hemoglobin 11.4(L) 11.5 - 16.0 g/dL LAB HEMETOLOGY METHOD 08/25/2024 10:02 AM [facility] Hematocrit 36.8 35.0 - 47.0 % LAB HEMETOLOGY METHOD 08/25[facility]2024 [facility] MCV 89.3 79.0 - 98.0 FL LAB HEMETOLOGY METHOD 08/25/2024 10:[facility] MCH 27.7 27.0 - 32.0 pcg LAB HEMETOLOGY METHOD 08/25/2024 10:02 AM [facility] MCHC 31.0(L) 32.0 - 37.0 g/dL LAB HEMETOLOGY METHOD 08/25/2024 10:02 [facility] RDW 14.0 11.0 - 15.0 % LAB HEMETOLOGY METHOD 08/25/2024 10:02 [facility] Platelets 313 130 - 400 K/mcL LAB HEMETOLOGY METHOD 08/25/2024 10:02 AM [facility] MPV 10.5 7.0 - 11.0 FL LAB HEMETOLOGY METHOD 08/25/2024 10:02 [facility] NRBC 0.0 <1.0 % LAB HEMETOLOGY METHOD 08/25/2024 10:02 AM EDT [facility] NRBC Absolute 0.00 <0.10 K/mcL LAB HEMETOLOGY METHOD 08/25/2024 10:02 AM EDT [facility] Blood Venous blood specimen / Unknown Venipuncture / Unknown 08/25/2024 6:42 AM EDT 08/25/2024 9:45 AM EDT us Leslie Garrison MD LAB BLOOD ORDERABLES Final Resul t [facility] [address] [place] [address], documented in this encounter Visit Diagnoses Diagnosis Unspecified atrial fibrillation (CMS/HCC V24, CMS/HCC V28) documented in this encounter Care Teams Cold Food Packer Relationship Specialty Start Date End Date Ceasar Burton MD [address] [place] [id number] PCP - General Internal Medicine 05/08/24 documented as of this encounter
--- OUTSIDE RECORDS SUMMARY | 2025-01-01 17:01 | XMS_ITS | Encounter Summary ---
Author Organization [facility] Address [address] [place] [address] Care Team Providers Care Rougher Merchant Mill Name Role Phone Ceasar Burton MD Primary Care Provider +1- [phone] Encounter Details Date Type Department Care Team (Late st Contact Info) Description 08/31/2024 Lab Requisition [facility] - Main Lab [address] [facility] [place] [address] Leslie Garrison MD [address] [place] [address] Unspecified atrial fibrillation (CMS/HCC V24, CMS/HCC V28) [...] Associated Diagnosis Comments COMPLETE BLOOD COUNT Routine 09/01/2024 6:11 AM EDT Unspecified atrial fibrillation (CMS/HCC V24, CMS/HCC V28) BASIC METABOLIC PANEL Routine 09/01/2024 6:11 AM EDT Unspecified atrial fibrillation (CMS/HCC V24, CMS/HCC V28) documented in this encounter Results * (ABNORMAL) Basic metabolic panel (09/01/2024 6:11 AM EDT) Sodium 139 133 - 145 mmol/L LAB CHEMISTRY METHOD 09/01/2024 2:34 PM [facility] Potassium 4.3 3.5 - 5.5 mmol/L LAB CHEMISTRY METHOD 09/01/2024 2:34 PM [facility] Chloride 105 96 - 110 mmol/L LAB CHEMISTRY METHOD 09/01/2024 2:34 PM [facility] CO2 24 21 - 32 mmol/L LAB CHEMISTRY METHOD 09/01/2024 2:34 PM [facility] Anion Gap 10 3 - 11 LAB CHEMISTRY METHOD 09/01/2024 2:34 PM [facility] Glucose 67(L) 70 - 100 mg/dL LAB CHEMISTRY METHOD 09/01/2024 2:34 PM [facility] BUN 11 5 - 25 mg/dL LAB CHEMISTRY METHOD 09/01/2024 2:34 PM [facility] Creatinine 0.63 0.50 - 1.10 mg/dL LAB CHEMISTRY METHOD 09/01/2024 2:34 PM [facility] eGFR 96 >=60 mL/min/1. 73m2 LAB CHEMISTRY METHOD 09/01/2024 2:34 PM [facility] Comment:Calculation based on the Chronic Kidney Disease Epidemiology Collaboration (CKD-EPI) equation refit without adjustment for race. BUN/Creatinine Ratio 17.5 LAB CHEMISTRY METHOD 09/01/2024 2:34 PM [facility] Calcium 9.0 8.5 - 10.5 mg/dL LAB CHEMISTRY METHOD 09/01/2024 2:34 PM [facility] Blood Venous blood specimen / Unknown Venipuncture / Unknown 09/01/2024 6:11 AM EDT 09/01/2024 2:26 PM EDT Leslie Garrison MD LAB BLOOD ORDERABLES Final Resul t [facility] [address] [place] [address], * (ABNORMAL) Complete blood count (09/01/2024 6:11 AM EDT) WBC 4.5(L) 4.8 - 10.8 K/mcL LAB HEMETOLOGY METHOD 09/01/2024 1:17 PM EDT [facility] RBC 4.20 3.80 - 4.80 M/mcL LAB HEMETOLOGY METHOD 09/01/2024 1:17 PM EDT [facility] Hemoglobin 11.6 11.5 - 16.0 g/dL LAB HEMETOLOGY METHOD 09/01/2024 1:17 PM EDT [facility] Hematocrit 37.2 35.0 - 47.0 % LAB HEMETOLOGY METHOD 09/01/2024 1:17 PM EDT [facility] MCV 88.8 79.0 - 98.0 FL LAB HEMETOLOGY METHOD 09/01/2024 1:17 PM EDT [facility] MCH 27.7 27.0 - 32.0 pcg LAB HEMETOLOGY METHOD 09/01/2024 1:17 PM EDT [facility] MCHC 31.2(L) 32.0 - 37.0 g/dL LAB HEMETOLOGY METHOD 09/01/2024 1:17 PM EDT [facility] RDW 14.1 11.0 - 15.0 % LAB HEMETOLOGY METHOD 09/01/2024 1:17 PM EDT [facility] Platelets 320 130 - 400 K/mcL LAB HEMETOLOGY METHOD 09/01/2024 1:17 PM EDT [facility] MPV 10.5 7.0 - 11.0 FL LAB HEMETOLOGY METHOD 09/01/2024 1:17 PM EDT [facility] NRBC 0.0 <1.0 % LAB HEMETOLOGY METHOD 09/01/2024 1:17 PM EDT [facility] NRBC Absolute 0.00 <0.10 K/mcL LAB HEMETOLOGY METHOD 09/01/2024 1:17 PM EDT [facility] Blood Venous blood specimen / Unknown Venipuncture / Unknown 09/01/2024 6:11 AM EDT 09/01/2024 12:03 PM EDT us Leslie Garrison MD LAB BLOOD ORDERABLES Final Resul t [facility] [address] [place] [address], documented in this encounter Visit Diagnoses Diagnosis Unspecified atrial fibrillation (CMS/HCC V24, CMS/HCC V28) documented in this encounter Care Teams Rougher Merchant Mill Relationship Specialty Start Date End Date Ceasar Burton MD [address] [place] [id number] PCP - General Internal Medicine 05/08/24 documented as of this encounter
--- OUTSIDE RECORDS SUMMARY | 2025-01-01 17:01 | XMS_ITS | Encounter Summary ---
Author Organization [facility] Address [address] [place] [address] Care Team Providers Care Control System Computer Scientist Name Role Phone Ceasar Burton MD Primary Care Provider +1- [phone] Encounter Details Date Type Department Care Team (Late st Contact Info) Description 05/17/2024 Lab Requisition [facility] - Main Lab [address] [place] [address] Ceasar Burton MD [address] [place] [address] Essential (primary) hypertension; Anemia, unspecified Social History [...] Associated Diagnosis Comments COMPLETE BLOOD COUNT Routine 05/18/2024 7:50 AM EST Essential (primary) hypertension Anemia, unspecified COMPREHENSIVE METABOLIC PANEL Routine 05/18/2024 7:50 AM EST Essential (primary) hypertension Anemia, unspecified documented in this encounter Results * Comprehensive metabolic panel (05/18/2024 7:50 AM EST) Sodium 136 133 - 145 mmol/L LAB CHEMISTRY METHOD 05/18/2024 1:11 PM EST [facility] Potassium 4.0 3.5 - 5.5 mmol/L LAB CHEMISTRY METHOD 05/18/2024 1:11 PM [facility] Chloride 101 96 - 110 mmol/L LAB CHEMISTRY METHOD 05/18/2024 1:11 PM [facility] CO2 28 21 - 32 mmol/L LAB CHEMISTRY METHOD 05/18/2024 1:11 PM [facility] Anion Gap 7 3 - 11 LAB CHEMISTRY METHOD 05/18/2024 1:11 PM [facility] Glucose 88 70 - 100 mg/dL LAB CHEMISTRY METHOD 05/18/2024 1:11 PM [facility] BUN 18 5 - 25 mg/dL LAB CHEMISTRY METHOD 05/18/2024 1:11 PM [facility] Creatinine 0.84 0.50 - 1.10 mg/dL LAB CHEMISTRY METHOD 05/18/2024 1:11 PM [facility] eGFR 75 >=60 mL/min/1. 73m2 LAB CHEMISTRY METHOD 05/18/2024 1:11 PM [facility] Comment:Calculation based on the Chronic Kidney Disease Epidemiology Collaboration (CKD-EPI) equation refit without adjustment for race. BUN/Creatinine Ratio 21.4 LAB CHEMISTRY METHOD 05/18/2024 1:11 PM [facility] Calcium 9.1 8.5 - 10.5 mg/dL LAB CHEMISTRY METHOD 05/18/2024 1:11 PM [facility] AST (SGOT) 20 10 - 42 unit/L LAB CHEMISTRY METHOD 05/18/2024 1:11 PM [facility] ALT (SGPT) 24 10 - 60 unit/L LAB CHEMISTRY METHOD 05/18/2024 1:11 PM [facility] Alkaline Phosphatase 83 42 - 121 unit/L LAB CHEMISTRY METHOD 05/18/2024 1:11 PM [facility] Total Protein 6.2 6.0 - 8.0 g/dL LAB CHEMISTRY METHOD 05/18/2024 1:11 PM [facility] Albumin 3.2 3.2 - 5.0 g/dL LAB CHEMISTRY METHOD 05/18/2024 1:11 PM [facility] Total Bilirubin 0.3 0.0 - 1.4 mg/dL LAB CHEMISTRY METHOD 05/18/2024 1:11 PM [facility] Blood Venous blood specimen / Unknown Venipuncture / Unknown 05/18/2024 7:50 AM EST 05/18/2024 11:24 AM EST Ceasar Burton MD LAB BLOOD ORDERABLES Final Result [facility] [address] [place] [address], [place] [phone] * (ABNORMAL) Complete blood count (05/18/2024 7:50 AM EST) WBC 4.4(L) 4.8 - 10.8 K/mcL LAB HEMETOLOGY METHOD 05/18/2024 2:08 PM [facility] RBC 4.40 3.80 - 4.80 M/mcL LAB HEMETOLOGY METHOD 05/18/2024 2:08 PM [facility] Hemoglobin 12.9 11.5 - 16.0 g/dL LAB HEMETOLOGY METHOD 05/18/2024 2:08 PM [facility] Hematocrit 41.2 35.0 - 47.0 % LAB HEMETOLOGY METHOD 05/18/2024 2:08 PM [facility] MCV 93.0 79.0 - 98.0 FL LAB HEMETOLOGY METHOD 05/18/2024 2:08 PM [facility] MCH 29.1 27.0 - 32.0 pcg LAB HEMETOLOGY METHOD 05/18/2024 2:08 PM [facility] MCHC 31.3(L) 32.0 - 37.0 g/dL LAB HEMETOLOGY METHOD 05/18/2024 2:08 PM EST [facility] RDW 14.8 11.0 - 15.0 % LAB HEMETOLOGY METHOD 05/18/2024 2:08 PM [facility] Platelets 377 130 - 400 K/mcL LAB HEMETOLOGY METHOD 05/18/2024 2:08 PM [facility] MPV 9.7 7.0 - 11.0 FL LAB HEMETOLOGY METHOD 05/18/2024 2:08 PM [facility] NRBC 0.0 <1.0 % LAB HEMETOLOGY METHOD 05/18/2024 2:08 PM [facility] NRBC Absolute 0.00 <0.10 K/mcL LAB HEMETOLOGY METHOD 05/18/2024 2:08 PM [facility] Blood Venous blood specimen / Unknown Venipuncture / Unknown 05/18/2024 7:50 AM EST 05/18/2024 11:24 AM EST Ceasar Burton MD LAB BLOOD ORDERABLES Final Result [facility] [address] [place] [address], documented in this encounter Visit Diagnoses Diagnosis Essential (primary) hypertension Unspecified essential hypertension Anemia, unspecified documented in this encounter Care Teams Control System Computer Scientist Relationship Specialty Start Date End Date Ceasar Burton MD [address] [place] [id number] PCP - General Internal Medicine 05/08/24 documented as of this encounter
--- NOTE | 2025-01-01 17:26 | MHC.EDTECH ---
Patient inc therefore patient changed and repositioned
[2025-01-01 18:02] VITALS: BP 126/59; PULSE 71; RESP 16; TEMP 36.6; O2SAT 97
--- NOTE | 2025-01-01 19:30 | ED_ITS ---
HPI - General Adult General Chief complaint: Extremity Problem Stated complaint: FTT Time Seen by Provider: 01/01/25 19:30 Source: patient and family () Mode of arrival: EMS Limitations: no limitations History of Present Illness ED Provider: HPI narrative: 69-year-old female, patient is coming from home with the , she has increased depression, this is due to the fact that she has not been able to ambulate, she is bed-bound, she lost 2 kids 1 6 years ago and her son recently, she has had telehealth visit with the PCP, on tramadol 50 mg daily and Wellbutrin states has not been helping her, she does have VNA coming to the house and her elderly has been caring for her but he has been having a hard time. No SI or HI, no recent trauma but she has problems with a lift in her left arm this is chronic, and essentially bilateral lower extremity contractures. Related Data Home Medications ?Medication ?Instructions ?Recorded ?Confirmed bupropion HCl 150 mg tablet,12 hr 150 mg PO BID 01/02/25 sustained-release metoprolol tartrate 50 mg tablet 50 mg PO BID 05/13/23 01/02/25 apixaban 5 mg tablet (Eliquis) 5 mg PO BID 05/05/24 carbidopa 25 mg-levodopa 100 mg 1 tab PO TID 01/02/25 01/02/25 tablet pantoprazole 40 mg tablet,delayed 40 mg PO DAILY@0630 PRN Acid Reflux 01/02/25 01/02/25 release semaglutide 1 mg/dose (4 mg/3 mL) 1 mg subcut TH@0900 01/02/25 01/02/25 subcutaneous pen injector (Ozempic) tramadol 50 mg tablet 50 mg PO DAILY PRN Pain (Sca le 01/02/25 01/02/25 Score 4-6) Previous Rx's ?Medication ?Instructions ?Recorded hydromorphone 2 mg tablet 2 mg PO Q6H PRN severe pain (scale 01/05/25 score 7-10) #9 tabs Allergies Allergy/AdvReac Type Severity Reaction Status Date / Time Penicillins Allergy Severe ANAPHYLAXIS Verified 01/01/25 16:32 Review of Systems 2 Constitutional: Constitutional: Reports as per [facility] Past Medical History Medical History Atrial fibrillation with RVR Hypertension Social History Social History Smoked in Last 30 Days: No Use of substances other than those prescribed or required for medical reasons: No Advance Directives: Yes Advance Directives on File: Yes Advance Directives Date on File: 05/13/23 Do you have a plan to hurt others: No Plan Physical Exam ED Vital Signs: Vital Signs - 24 hr 01/04/25 15:43 01/04/25 17:42 01/04/25 22:00 Temperature 98.0 F 97.2 F Pulse Rate 80 73 71 Respiratory Rate 16 18 Blood Pressure 139/71 142/75 H 114/54 L Pulse Oximetry 100 96 Oxygen Delivery Method Room Air Room Air 01/04/25 22:15 01/05/25 06:00 01/05/25 10:57 Temperature 96.4 F L Pulse Rate 73 64 64 Respiratory Rate 18 Blood Pressure 142/75 H 141/77 H 141/77 H Pulse Oximetry 99 Oxygen Delivery Method Room Air BMI result Body Mass Index 35.2 Const Other: * Gen: ?Chronically ill-appearing * Resp: ?No wheezing rales rhonchi no stridor moving air well * Abd: ?Bowel sounds are present, no tenderness no rebound no rigidity * MSK: Decreased range of motion and strength left shoulder and decreased range of motion and strength bilateral knees * Skin: Yeast infection in the pannus area, groin area and proximal inner thighs * Neuro: ?Alert and oriented x3, unable to lift left arm due to either frozen shoulder or chronic rotator cuff issue, no sensory deficits however, both of her knees are pretty much contracted with evidence for total knee replacements, distal pulses intact * Psych: Depressed, no SI no HI Course Reevaluation(s) Reevaluation #1: Time: 10:22 Date: 01/02/25 Provider: Paolo Warner MD Patient in physician observation continued.? No acute events reported overnight. No current complaints. VS stable.? Patient was evaluated by CARE who felt that the patient does not have any acute psychiatric illnesses that need to be addressed and that the patient should continue with case management evaluation. Care team states that both the and patient agree with this plan. We will continue to monitor Reevaluation #2: ROSS Roberts observation continued. Uneventful night. Vital signs stable. No complaints from nursing overnight. Med reconciliation reviewed and done. Pending disposition. Will continue to monitor. Reevaluation #3: Time: 12:47 Date: 01/04/25 Provider: ROSS Betancourt Patient in physician observation for case management needs. No acute events reported overnight.? No current issues or complaints. VS stable. Patient is pending placement at facility - case management on board, [facility], additional referrals made for private pay bed offers. PT recommending acute rehab. Will continue to monitor. 01/05/25 0826 SAVI Gomez: Physician observation continued, no overnight events reported by nursing. following for disposition to [facility]. Family agreeable with this plan. 01/05/25 1300 SAVI Gomez: Tomy Sterling from , patient to be discharged to [facility]. Prescription for dilaudid for severe pain sent. Observation care revealed that patient does not meet medical necessity for hospitalization. Final disposition discussed with patient. The patient completed observation care at 1300 on 01/05/25. Medications Administered Generic Name Dose Route Start Last Admin Trade Name Freq PRN Reason Stop Dose Admin Apixaban 5 mg 01/02/25 09:00 01/05/25 10:58 Apixaban 5 Mg Tablet PO 5 mg BID NYA Administration Bupropion HCl 300 mg 01/02/25 10:45 01/05/25 10:58 Bupropion Hcl Xl 300 Mg Tab.Er.24h PO 300 mg DAILY NYA Administration Carbidopa/Levodopa 1 tab 01/05/25 07:30 01/05/25 11:03 Carbidopa/Levodopa 25/100 Tablet PO 1 tab TIDAC NYA Administration Hydromorphone HCl 2 mg 01/03/25 21:48 01/05/25 07:52 Hydromorphone Hcl 2 Mg Tablet PO 2 mg Q4H PRN Administration Pain, Severe (Pain Scale 7-10) Metoprolol Tartrate 50 mg 01/02/25 09:00 01/05/25 10:57 Metoprolol Tartrate 50 Mg Tablet PO 50 mg BID NYA Administration Protocol Nystatin 1 appl 01/02/25 09:02 01/04/25 22:15 Nystatin Powder 15 Gm Bottle TOPICAL 1 appl TID PRN Administration rash Protocol Discontinued Medications Generic Name Dose Route Start Last Admin Trade Name Cayla PRN Reason Stop Dose Admin Carbidopa/Levodopa 1 tab 01/02/25 09:00 01/04/25 17:59 Carbidopa/Levodopa 25/100 Tablet PO Not Given TIDAC NYA Carbidopa/Levodopa 1 tab 01/04/25 19:00 01/04/25 20:23 Carbidopa/Levodopa 25/100 Tablet PO 01/04/25 19:01 1 tab ONCE ONE Administration Clotrimazole 1 appl 01/01/25 20:07 01/01/25 21:38 Clotrimazole 1 % Cream 15 Gm Tube TOPICAL 01/01/25 20:08 Not Given BID ONE Protocol Hydromorphone HCl 2 mg 01/01/25 20:07 01/01/25 20:49 Hydromorphone Hcl 2 Mg Tablet PO 01/01/25 20:08 2 mg ONCE ONE Administration Hydromorphone HCl 2 mg 01/02/25 16:05 01/02/25 16:17 Hydromorphone Hcl 2 Mg Tablet PO 2 mg ONCE PRN Administration Pain, Severe (Pain Scale 7-10) Oxycodone HCl 10 mg 01/01/25 20:07 01/02/25 12:51 Oxycodone Hcl Immed Release 5 Mg Tablet PO 10 mg Q6H PRN Administration Pain, Severe (Pain Scale 7-10) Oxycodone HCl 5 mg 01/03/25 00:30 01/03/25 00:36 Oxycodone Hcl Immed Release 5 Mg Tablet PO 01/03/25 00:31 5 mg ONCE ONE Administration Oxycodone HCl 10 mg 01/03/25 09:54 01/03/25 09:59 Oxycodone Hcl Er 10 Mg Tab.Er.12h PO 01/03/25 09:55 10 mg ONCE ONE Administration Oxycodone HCl 5 mg 01/03/25 09:54 01/03/25 09:59 Oxycodone Hcl Immed Release 5 Mg Tablet PO 01/03/25 09:55 5 mg ONCE ONE Administration Tramadol HCl 50 mg 01/03/25 00:22 01/03/25 00:27 Tramadol Hcl 50 Mg Tablet PO 01/03/25 00:23 Not Given ONCE ONE Medical Decision Making Medical Decision Making [facility] Narrative: 8:15 PM 01/01/2025 (Dr. Rajinder Freire): Multiple concerns to address with the patient today, we had a very nice conversation and she has been grieving the of her child which is very much normal, and she lost a daughter 6 years ago as well, plus she is bed-bound so she has multiple medical issues and at 69 she feels that she is not as active as she should be which is contributing to her depression she has no SI, Wellbutrin is not helping she also else chronic pain and using tramadol 50 mg is just not enough for her body weight, her is at bedside and he has been very helpful for her and a good support however the VNA that she has at home is running out and he is going to have a hard time caring for her, they would be interested in talking to someone from our care team as well as getting case management involved, I we will medicate her for pain, obtain case management and crisis consult, there does not appear to be any new injuries or medical conditions that are contributing to her presentation. Differential Diagnosis Differential Diagnoses: The differential diagnosis associated with the presentation includes (Failure to thrive, adhesive capsulitis, rotator cuff tear, knee contractures, UTI, depression) Admission/Observation Consideration of admission/observation: Escalation of care including admission/observation considered Consult Healthcare Provider Management of the patient was discussed with: Behavioral Health Provider Lab Data [facility] Lab Attestation statement: I reviewed the patient's lab results. 01/01/25 20:21 01/01/25 20:21 Labs: Lab Results 01/01/25 01/03/25 Range/Units 20:21 18:49 WBC 5.3 (4.8-10.8) X10*3/uL RBC 4.40 (4.20-5.50) X10*6/uL Hgb 12.2 (12.0-16.0) g/dl Hct 36.5 L (37.0-47.0) % MCV 83.0 (80.0-98.0) fL MCH 27.7 (27.0-33.0) pg MCHC 33.4 (31.0-35.0) g/dl RDW 17.6 H (11.0-16.0) % Plt Count 291 (160-400) X10*3/uL MPV 8.9 L (9.4-12.3) fL Immature Gran % (Auto) 0.2 (0.0-0.4) % Neut % (Auto) 59.8 (45-73) % Lymph % (Auto) 22.2 (20-40) % [place] % (Auto) 10.1 (2-11) % Eos % (Auto) 6.7 H (0-4) % Baso % (Auto) 1.0 (0-2) % Lymph # (Auto) 1.2 (1.2-4.9) X10*3/uL [place] # (Auto) 0.5 (0.1-1.2) X10*3/uL Eos # (Auto) 0.4 (0.0-0.4) X10*3/uL Baso # (Auto) 0.1 (0.0-0.2) X10*3/uL Abs Immat Gran (auto) 0.01 (0.00-0.03) X10*3/uL Absolute Neuts (auto) 3.2 (2.0-8.3) x10*3/uL Absolute Nucleated RBC 0.000 (0.0-0.012) X10*3/uL Nucleated RBC % (auto) 0.0 (0.0-0.2) /100WBC Sodium 140 (135-145) mmol/L Potassium 4.2 (3.3-5.1) mmol/L Chloride 106 (96-108) mmol/L Carbon Dioxide 28 (22-29) mmol/L Anion Gap 10 L (12-20) BUN 12 (9-16) mg/dL Creatinine 0.55 (0.5-1.4) mg/dL Estim Creat Clear Calc 115.1 Estimated GFR > 60 Random Glucose 89 (60-115) mg/dL Calcium 8.7 (8.4-10.2) mg/dL Total Bilirubin 0.4 (0.0-1.0) mg/dL AST 26 (5-31) U/L ALT 7 (0-31) U/L Alkaline Phosphatase 96 (39-117) U/L Total Protein 5.4 L (6.5-8.0) g/dL Albumin 3.0 L (3.5-5.0) g/dL Urine Color Yellow Urine Appearance Clear Urine pH 8.0 (5.0-9.0) Ur Specific [place] 1.010 (1.005-1.025) Urine Protein Negative (Neg-Trace) mg/dL Urine Glucose (UA) Negative (Negative) mg/dL Urine Ketones Negative (Negative) mg/dL Urine Blood Moderate (2+) H (Negative) Urine Nitrite Negative (Negative) Ur Leukocyte Esterase Moderate (2+) H (Negative) Urine RBC 6-10 H (0-2) /HPF Urine WBC 0-5 (0-5) /HPF Ur Squamous Epith Cells 0-2 (0-2) /HPF Urine Bacteria 4+ (None Seen) Hyaline Casts 0-2 (0-2) /LPF Urine Yeast Present Independent Historian Clinical information obtained from an independent historian. History obtained from or confirmed by: Spouse Prescription Management I considered prescription management with: Pain Medication Discharge Plan Discharge Clinical Impression: Depression due to physical illness, Adult failure to thrive Patient Disposition: Xfer Inpatient Rehab Fac Transfer Details: [facility] Prescriptions: New hydromorphone 2 mg tablet 2 mg PO Q6H PRN (Reason: severe pain (scale score 7-10)) Qty: 9 0RF Rx Instructions: Partial Fill upon patient request. No Action Eliquis 5 mg tablet 5 mg PO BID carbidopa-levodopa 25-100 mg tablet 1 tab PO TID Ozempic 1 mg/dose (4 mg/3 mL) pen injector 1 mg SUBCUT TH@0900 Patient Comments: Patient takes medication on and received last dose pantoprazole 40 mg tablet,delayed release (DR/EC) 40 mg PO DAILY@0630 PRN (Reason: Acid Reflux) tramadol 50 mg tablet 50 mg PO DAILY PRN (Reason: Pain (Scale Score 4-6)) Patient Comments: Patient states I have stopped taking this medication because it doesnt help bupropion HCl 150 mg tablet sustained-release 12 hr 150 mg PO BID metoprolol tartrate 50 mg tablet 50 mg PO BID Referrals: [facility] [Outside] Referral Note: [address] [place], [place] [id number] Print Language: Yoruba
[2025-01-01 20:42] LABS: MANUAL DIFF FLAG NO
[2025-01-01 20:43] LABS: Hematocrit 36.5 % (37.0-47.0); Hemoglobin 12.2 g/dl (12.0-16.0); Imm Gran Abs Auto 0.01 X10*3/uL (0.00-0.03); Imm Gran Pct Auto 0.2 % (0.0-0.4); Lymphocytes Absolute Auto 1.2 X10*3/uL (1.2-4.9); Mean Corpuscular HGB Conc 33.4 g/dl (31.0-35.0); Mean Corpuscular Hemoglobin 27.7 pg (27.0-33.0); Mean Corpuscular Volume 83.0 fL (80.0-98.0); NRBC Abs Auto 0.000 X10*3/uL (0.0-0.012); NRBC Pct Auto 0.0 /100WBC (0.0-0.2); Platelet Count 291 X10*3/uL (160-400); Red Blood Count 4.40 X10*6/uL (4.20-5.50); White Blood Count 5.3 X10*3/uL (4.8-10.8)
--- NOTE | 2025-01-01 20:51 | MHC.CM.ED ---
Pt awaiting medical clearance. CARE team consult has also been ordered. Pt lives with her . He is her caregiver. She uses no DME, no wheelchair. PCP is Tristin Mcgrath. HCP is on file. Pt states her legs are weak and she cannot stand. She does not walk. She tells CM she has been bedbound for 7-8 months. States she wears adult diapers and she does not shower/bathe. He gives her a bedbath. States she has been to STR in the past at [facility] and at [facility]. She is active with [facility]. States she has completed home PT. Pt wants to go to [facility]. Pt understands that she does not have a qualifying stay and that Medicare follows the 3 midnight rule. Pt was hoping she would be admitted. CM explained that she must meet criteria for admission. Labs are pending. CM will place acute referrals and will contact [facility] via [employer] to see if she is still active with them. Pt tells CM she has paid for STR in the past. Pt c/o depression. States it has been long standing, but worse now. Her son 2 weeks ago, very suddenly. She lost a daughter 8 years ago. She has 2 living children. She is awaiting a CARE team consult.
[2025-01-01 20:56] LABS: Alanine Aminotransferase 7 U/L (0-31); Albumin Level 3.0 g/dL (3.5-5.0); Alkaline Phosphatase 96 U/L (39-117); Anion Gap 10 (12-20); Aspartate Amino Transferase 26 U/L (5-31); Blood Urea Nitrogen 12 mg/dL (9-16); Calcium 8.7 mg/dL (8.4-10.2); Carbon Dioxide 28 mmol/L (22-29); Chloride 106 mmol/L (96-108); Creatinine Clr Calc Pharmacy 115.1; Estimated Glomerular Filt Rate > 60; Potassium 4.2 mmol/L (3.3-5.1); Sodium 140 mmol/L (135-145); Total Protein 5.4 g/dL (6.5-8.0)
[2025-01-01] MEDS: oxyCODONE HCl Immed Release 5 MG TABLET 10 MG PO (23:46)
[2025-01-01 23:47] VITALS: BP 104/62; PULSE 77; RESP 16; O2SAT 95
[2025-01-02] VITALS (8 sets, daily range): BP systolic 105–154; BP diastolic 56–70; PULSE 64–84; RESP 14–20; TEMP 35.8–37; O2SAT 95–99
--- NOTE | 2025-01-02 01:14 | PC.NURSE ---
pts bottom and upper thigh area noted to have erythema and blotted. pt reports she wears adult diapers at home for incontinence. educated on skin breakdown. barrier cream applied to area and purewick placed for incontinence. MD Damian aware, picture texted to thru mickiect.
[2025-01-02] MEDS: oxyCODONE HCl Immed Release 5 MG TABLET 10 MG PO ×2 (05:51→12:51)
--- NOTE | 2025-01-02 07:24 | PC.NURSE ---
This RN assumed care of patient @ 0700 Patient A&O x 3 Patient c/o left arm pain rated 7/10, non radiating Patient received PRN oxycodone, patient reports somewhat effectiveness VSS Patient reports being anxious, talking about recent stays at rehab facilities [facility] and [facility] in reach
--- NOTE | 2025-01-02 08:58 | PC.NURSE ---
Medications reconciled with patient Patient no longer taking Lisinopril, Tramadol, and Paroxetine Patient takes Ozempic on and received last dose
--- NOTE | 2025-01-02 10:28 | PHA.MEDREC ---
Pharmacy Consult ? Medication Reconciliation Pharmacy has completed the medication reconciliation.Spoke with patient in ED who knew all medications. Last took medications yesterday. Ozempic is injected on .
[2025-01-02] MEDS: buPROPion HCl XL 300 MG TAB.ER.24H PO (10:54)
--- NOTE | 2025-01-02 10:59 | PC.NURSE ---
Patient reported using alcohol regularly, approx 3 glasses of wine a day Last drink was on Patient has no hx of withdraws CIWA 2
--- NOTE | 2025-01-02 11:15 | MHC.CM.ED ---
Addendum entered by Hallie Hoover 01/02/25 12:12: [facility] is unable to offer a bed. Original Note: Patient remains in ER. Physical therapy eval completed. Rehab is recommended. [facility] is unable to offer a bed. Clinical updates sent to Andrea. Continue to monitor for d/c needs.
--- NOTE | 2025-01-02 12:43 | MHC.CM.ED ---
Received telephone call from patient's VNA RN, Andrey. Andrey is concerned about patient's mental health. T/W explained patient was cleared by Care Team. Andrey's call transferred to the Care Team. Continue to monitor for d/c needs.
--- NOTE | 2025-01-02 13:05 | MHC.CM.ED ---
Received telephone call from patient's son, Carlos. Carlos can be reached via telephone at [phone]. Carlos lives in [place] and works in social work specifically in psychology. Carlos was concerned patient was not honest about drinking 2-3 bottles of wine a day. T/W explained patient was forthcoming with that information. Continue to monitor for d/c needs.
--- NOTE | 2025-01-02 20:27 | PC.NURSE ---
Addendum entered by Keegan Lino 01/02/25 20:31: this RN assumed care of this pt @1900, pt appears to be in no apparent distress noted Original Note: pt transferred to hospital bed and placed on purewick at this time
--- NOTE | 2025-01-02 23:00 | PC.NURSE ---
at this time pt stated she is wet, and that the purewick is not working properly. Pt educated on proper positioning necessary for purewick placement. skin integrity education provided d/t extensive skin breakdown in between pt thighs and buttocks. Pt is A+Ox3, aware of urinary frequency. Educated on the important of using a bedpan in order to prevent further skin break down and infection prevention. Pt changed to clean sheets, barrier cream applied to affected area
[2025-01-03] VITALS (8 sets, daily range): BP systolic 108–153; BP diastolic 48–77; PULSE 64–72; RESP 11–17; TEMP 36.7–37.1; O2SAT 96–99
[2025-01-03] MEDS: oxyCODONE HCl Immed Release 5 MG TABLET PO ×2 (00:36→09:59)
--- NOTE | 2025-01-03 08:19 | PC.NURSE ---
Assumed care of pt approx 0700, resting comfortably in bed with eyes closed and resp even and unlabored. Pt notified of breakfast tray arrival and attempted to give pt scheduled medications, pt declined to take medications at this time and will notify RN when ready to take.
[2025-01-03] MEDS: buPROPion HCl XL 300 MG TAB.ER.24H PO (09:45)
[2025-01-03] MEDS: oxyCODONE HCl ER 10 MG TAB.ER.12H PO (09:59)
--- NOTE | 2025-01-03 11:19 | MHC.CM.ED ---
Addendum entered by Hallie Hoover 01/03/25 14:10: [facility] is not able to offer a bed. Original Note: Patient remains in ER. [facility] does not not have a bed today. Will re-connect with [facility] tomorrow Saturday, 01/04 to check bed availability. Referral sent to [facility] for private pay STR at this time. Continue to monitor for d/c needs.
--- NOTE | 2025-01-03 12:45 | PC.NURSE ---
Pt noted have been incontinent of urine, attempted to provide hygiene care and linen change at this time and patient refused. Pt is a/o x 3, states not right now when several attempts made to provide incontinence care. Patient educated on the importance of incontinence care and prevention of skin breakdown/infection, continues to refuse at this time.
--- NOTE | 2025-01-03 14:00 | PC.NURSE ---
Pt now agreeable for linen change and incontinence care, redness noted to bilateral groin and abdominal folds.
[2025-01-03 19:06] LABS: Appearance Urine Clear; Glucose Urine UA Negative (Negative); PH 8.0 (5.0-9.0); Specific Gravity - Urine 1.010 (1.005-1.025); UMIC TRIGGER UACC YES
[2025-01-03 19:19] LABS: UACC Culture Trigger YES
--- NOTE | 2025-01-03 20:13 | PC.NURSE ---
Pt educated on not taking home meds while in the hospital. Pt stated she had tylenol PM but understood RN educating pt on the importance of not taking meds. RN and tech aware. Will continue to monitor pt.
--- NOTE | 2025-01-03 20:13 | MHC.EDTECH ---
@2005 This tech went into the patient's room to obtain and update vitals, patient was asked about medication in her bag, the patient stated it was Tylenol PM. This tech informed the patient is not able to take at home medication while in ED. RN Aware @2012 This tech witnessed the patient pulling out the medication her bag from outside her room curtain and informed the nurse, RN went and spoke with the patient.
[2025-01-04] VITALS (8 sets, daily range): BP systolic 111–145; BP diastolic 54–80; PULSE 68–80; RESP 16–20; TEMP 36.2–36.7; O2SAT 96–100
[2025-01-04] MEDS: buPROPion HCl XL 300 MG TAB.ER.24H PO (07:57)
--- NOTE | 2025-01-04 08:09 | PC.NURSE ---
pt is alert and oriented, skin pwd, respirations even and unlabored, ls clear, pt is reporting her generalized pain-legs/hip/back 11/15, pt denies si/hi states feeling depressed life stresses-daughter few months ago and her son also just few weeks ago, pt also is reporting some alcohol use but states she does not drink daily denies alcohol withdrawal in the past, ciwa right now is 1. pt is reporting when she sat up to eat on the side of the bed felt a little lightheaded/dizzy,
--- NOTE | 2025-01-04 10:15 | MHC.CM.ED ---
Addendum entered by Hallie Hoover 01/04/25 10:35: [facility] offer [facility]. Referral broadcasted locally for private pay bed offers. Original Note: Patient remains in ER overflow. Patient aware [facility] is reviewing to see if they can offer a bed. Continue to monitor for d/c needs.
--- NOTE | 2025-01-04 19:54 | PC.NURSE ---
Patient screamed out for assistance. Call west within reach, but patient claimed to be yelling and pushing call west. Patient was neither yelling or using call west. This RN & bus dispatcher interstate came to bedside, repositioned into left tilt with pillows support. Pt verbalized agitation with a male environmental employee with a stupid mustache because he smiled at her with his stupid mustache and big teeth . Answers questions appropriately to this RN, but claimed that she was yelling for help despite a quiet unit and patient's room being near nurse's station. Pt was redirected and calmed. Barrier cream applied between legs, and on buttocks. Slight improvement since last repositioning and barrier cream application. Purewick remains in proper place, to wall suction. Awaiting medications from pharmacy, to be medicated as ordered upon arrival. Pt aware of this. Pillows placed behind back, between knees, and between ankles. Call west teaching reinforced, secured to arm of bed in front of the patient. Requesting placement at [facility], verbalized frustrations regarding 3 night overnight stay.
--- NOTE | 2025-01-04 23:14 | MHC.CM.ED ---
CM met with patient. Pt is A&Ox3. Pt is sad. Hx depression. Cleared by CARE team. Son 2 weeks ago and daughter 8 years ago. Pt is able to private pay for STR. Pt is requesting that CM discuss the plan of care with her. CM reviewed facilities that can offer private pay bed, however only one facility can offer 2 weeks payment up front. [facility][Note 3] in pending. Pt refuses to return to [place]. Pt has private paid for STR in the past. Pt agreeable to additional referrals being placed. Would like to pay for 2 weeks up front instead of 1 month.
[2025-01-05 06:00] VITALS: BP 141/77; PULSE 64; RESP 18; TEMP 35.8; O2SAT 99
--- NOTE | 2025-01-05 07:55 | PC.NURSE ---
Pt axox3, c/o BLE pAIN. painful to reposition. unable to sit upright for breakfast d/t pain despite being medicated. Pt insists she is able to eat safely in supine position at only 20-30 degrees. frequent checks during meal.. no issues thusfar.
--- NOTE | 2025-01-05 10:35 | MHC.CM.ED ---
Patient remains in ER overflow. [facility], [facility], [facility], [facility], [facility], and [facility] are able to offer private pay beds with 2 weeks up front. These offers were discussed with patient. Patient will look over list and have 1st choice for CM at 12pm. Continue to monitor for d/c needs.
[2025-01-05 10:57] VITALS: BP 141/77; PULSE 64
[2025-01-05] MEDS: buPROPion HCl XL 300 MG TAB.ER.24H PO (10:58)
--- NOTE | 2025-01-05 13:20 | PC.NURSE ---
RN to SHAYAN with Elena at [facility]. Pt was just cleansed of incontinent urine. Diffuse fungal infections throughout silvina-area and all folds cleansed and retreated with nystatin powder.
== END 2025-01-05 13:25 ==
PROVIDERS: Emergency Provider Emergency Medicine; PCP Internal Medicine
DX: R62.7 Adult failure to thrive (principal); F32.A Depression, unspecified; I10 Essential (primary) hypertension; I48.91 Unspecified atrial fibrillation; Z79.899 Other long term (current) drug therapy; Z63.4 Disappearance and death of family member
CPT/HCPCS: 36415; 80053; 81001; 85025; 87086; 97110; 97162; 97530; 99285; S9485